=== PATIENT | female | born 1960 | race Caucasian/White ===

== ENCOUNTER 2019-11-25 13:47 | Emergency (ER) | payer MEDICARE, SELFPAY ==
--- NOTE | ~2019-11-25 | CT_ITS ---
EXAMINATION: CT abd pelvis lumbar wo con DATE: 11/25/2019 15:09 INDICATION: Left flank pain TECHNIQUE: Computed tomography (CT) of the abdomen, pelvis and lumbar spine was performed without int ravenous contrast. The dose-length product was 234.49 mGy-cm. Automated exposure control and iterativ e reconstruction technique were employed. COMPARISON: CT dated 10/29/2012 FINDINGS: Lung bases unremarkable. No significant pleural or pericardial effusion. Heart size normal. Mild atherosclerosis. There is an ectopic right pelvic kidney with probable fibrous band connecting to the left kidney. There is a punctate nonobstructing right renal stone. No ureteral stones or signi ficant hydronephrosis. The liver, spleen, pancreas, adrenal glands are unremarkable. Nonobstructive bowel gas pattern. No ly mphadenopathy. No abnormal pelvic masses or fluid collections. There is a urachal remnant of the blad estella. Uterus is likely surgically absent. Lumbar spine: There is disc narrowing at L4-5. There is mild facet degenerative change at L3-4, L4-5 and L5-S1. No acute fracture or traumatic malalignment. Mild symmetric degenerative changes of the sa croiliac joints. There are multiple levels of endplate hypertrophy. IMPRESSION: 1. Punctate nonobstructing right renal stone. 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 No ureteral stones or hydronephrosis. 2: Mild lumbar spondylosis for age. Reviewed, dictated and finalized at location A. IMPRESSION: 1. Punctate nonobstructing right renal stone. 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 No uret eral stones or hydronephrosis. 2: Mild lumbar spondylosis for age.
[2019-11-25 13:49] VITALS: BP 170/107; PULSE 106; RESP 17; TEMP 37.2; O2SAT 97
--- NOTE | 2019-11-25 14:03 | ED.ABDPAIN ---
HPI - Abdominal Pain General Chief Complaint: Back Pain/Injury Stated Complaint: back pain/kidney stone Time Seen by Provider: 11/25/19 13:58 History of Present Illness HPI narrative: Pt c/o left flank pain accompanied by unable to urinate, started today, h/o kidney stones. Denies n/v/d or fever. Denies abd pain. Related Data Home Medications Medication Instructions Recorded Confirmed bupropion HCl 150 mg 24 hr tablet, 150 mg PO QAM 11/25/19 extended release clonazepam 0.5 mg tablet 0.5 mg PO TID tablet 11/25/19 lisdexamfetamine 30 mg capsule 30 mg PO DAILY 11/25/19 Allergies Allergy/AdvReac Type Severity Reaction Status Date / Time Penicillins Allergy Unknown Scratchy Verified 11/25/19 13:48 palms Review of Systems Review of Systems: All systems reviewed & are unremarkable except as noted in HPI and below Constitutional: Constitutional: Denies body ache(s), Denies chills, Denies excessive sweating, Denies fatigue, Denies fever(s), Denies headache(s), Denies lethargy, Denies malaise, Denies weakness and Denies weight loss Eyes: Eyes: Denies blurry vision, Denies change in vision and Denies loss of vision ENT: Denies dizziness, Denies ear discharge, Denies headache(s), Denies lip swelling, Denies epistaxis, Denies nasal congestion, Denies neck pain, Denies throat swelling and Denies tongue swelling Cardiovascular: Cardiovascular: Denies chest pain, Denies chest pain at rest, Denies chest pain with activity, Denies diaphoresis, Denies rapid heart rate, Denies edema, Denies irregular heart rhythm, Denies lightheadedness, Denies palpitations, Denies dyspnea and Denies dyspnea on exertion Respiratory: Respiratory: Denies chest congestion, Denies cough, Denies hemoptysis, Denies dyspnea and Denies dyspnea on exertion Gastrointestinal: Gastrointestinal: Denies abdominal pain, Denies melena, Denies hematochezia, Denies diarrhea, Denies nausea, Denies vomiting and Denies hematemesis Musculoskeletal: Musculoskeletal: Denies abnormal gait, Denies deformity, Denies joint swelling, Denies limited range of motion, Denies neck pain and Denies numbness Neurologic: Denies Abnormal speech present, Denies abnormal gait, Denies confusion, Denies dizziness, Denies headache(s), Denies focal weakness, Denies loss of vision, Denies numbness, Denies Other visual disturbances, Denies Sensory deficit (Neuro) and Denies weakness Psychiatric: Psychiatric: Denies confusion, Denies depression, Denies auditory hallucinations, Denies homicidal ideation and Denies suicidal ideation Endocrine: Endocrine: Denies cold intolerance, Denies excessive sweating, Denies fatigue, Denies heat intolerance and Denies palpitations Hematologic/Lymphatic: Hematologic/Lymphatic: Denies easy bleeding and Denies easy bruising Allergic/Immunologic: Allergic/Immunologic: Denies lip swelling, Denies throat swelling and Denies tongue swelling PMFSH Past Medical History Medical History (Updated 11/25/19 @ 17:05 by Unruly Posey MD) Anxiety and depression COPD (chronic obstructive pulmonary disease) DDD (degenerative disc disease) History of ectopic Hypertension PTSD (post-traumatic stress disorder) Ruptured appendix Surgical History Surgical History (Updated 05/12/19 @ 12:31 by Lynda Hernandez [facility]) History of abdominoplasty History of section x 2 History of hysterectomy Hx of bilateral breast reduction surgery Family History Family History (Updated 01/15/18 @ 14:09 by DOCTOR UNKNOWN) Mother Family history of malignant neoplasm of breast in first degree relative Social History Social History (Updated 11/25/19 @ 13:04 by Cari Ellison [facility]) Smoking status: Current every day smoker Smoking end date: 03/03/17 Alcohol intake: never Gender identity (if verbalized by the patient): Female Exam Const: General: cooperative, healthy appearing, comfortable, no acute distress, well developed, alert and awake;
[2019-11-25 14:40] LABS: Basophils Absolute Auto 0.1 K/mm3 (0.0-0.1); Basophils Percent Auto 0.6 % (0.2-1.2); Eosinophils Absolute Auto 0.1 K/mm3 (0-0.3); Eosinophils Percent Auto 1.2 % (0-4.4); Hematocrit 45.3 % (37.0-47.0); Hemoglobin 15.1 g/dL (12.0-15.0); Immature Granulocyte Absolute 0.03 K/mm3 (0.00-0.031); Immature Granulocyte Percent A 0.3 % (0-0.5); Lymphocytes Absolute Auto 2.91 K/mm3 (0.9-3.2); Lymphocytes Percent Auto 24.7 % (18.3-44.2); Mean Corpuscular HGB Conc 33.3 g/dl (32-36); Mean Corpuscular Hemoglobin 29.3 pg (26-34); Monocytes Absolute Auto 0.5 K/mm3 (0.1-0.6); Monocytes Percent Auto 4.4 % (2.6-8.5); Neutrophils Absolute Auto 8.1 K/mm3 (1.3-6.7); Neutrophils Percent Auto 68.8 % (45.5-73.1); Platelet Count Result 291 k/mm3 (150-375); Red Blood Count 5.15 M/mm3 (4.2-5.4); Red Cell Distribution Width 13.3 % (11.5-14.5); White Blood Count 11.8 K/mm3 (4.5-10.0)
[2019-11-25 14:46] LABS: Add Urine Microscopic? YES; Appearance Urine Cloudy (Clear); Bilirubin Urine Negative (Negative); Blood Urine Negative (Negative); Color Urine Yellow (Yellow); Glucose Urine UA Negative (Negative); Ketones Urine Trace mg/dL (Negative); Leukocyte Esterase Ur Negative LEU/UL (Negative); Mucus Urine Rare /lpf; Nitrate Urine Negative (Negative); Protein Urine Negative (Negative); RBC Urine 0-2 /hpf (0-2); Squamous Epithelial Cell Urine Moderate /hpf (Few); Urobilinogen Urine Negative mg/dL (<2.0); WBC Urine 0-3 /hpf
[2019-11-25 14:48] LABS: Anion Gap 9 mmol/L (8-16); Blood Urea Nitrogen 11 mg/dL (7-17); Calcium 9.7 mg/dL (8.4-10.2); Carbon Dioxide 24 mmol/L (22-30); Chloride 106 mmol/L (98-107); Estimated CRCL calculation 56 ml/min; Estimated Glomerular Filt Rate > 60; Glucose 106 mg/dL (65-105); Sodium 139 mmol/L (137-145)
[2019-11-25] MEDS: KETOROLAC 30 MG/ML VIAL (*BKC) IV PUSH (14:54)
[2019-11-25] MEDS: PROMETHAZINE HCL 25 MG/ML AMPUL (14:54)
[2019-11-25 16:19] VITALS: BP 185/103; PULSE 78; RESP 18; O2SAT 96
[2019-11-25] MEDS: HYDROcodone/acetaminophen (*CRX) 5-325 MG TABLET 2 TAB PO (17:04)
== END 2019-11-25 18:01 | disposition home or self-care (01) ==
PROVIDERS: Emergency Medicine; Emergency Provider Emergency Medicine; PCP Internal Medicine
DX: S39.012A Strain of muscle, fascia and tendon of lower back, initial encounter (principal); R10.9 Unspecified abdominal pain; F41.9 Anxiety disorder, unspecified; F32.9 Major depressive disorder, single episode, unspecified; J44.9 Chronic obstructive pulmonary disease, unspecified; I10 Essential (primary) hypertension; F43.10 Post-traumatic stress disorder, unspecified; Z87.891 Personal history of nicotine dependence; M47.816 Spondylosis without myelopathy or radiculopathy, lumbar region; N20.0 Calculus of kidney; Q63.2 Ectopic kidney; Z87.442 Personal history of urinary calculi; X58.XXXA Exposure to other specified factors, initial encounter
CPT/HCPCS: 36415; 72133; 74176; 80048; 81001; 85025; 96374; 96375; 99284; A9270; J1885; J2550

== ENCOUNTER → 2021-03-29 01:18 | Outpatient (CLI) | payer MEDICARE, SELFPAY ==
[2021-03-29 14:26] LABS: Influenza A QL RT-PCR Negative (Negative); Influenza B QL RT-PCR Negative (Negative); SARS-CoV-2 RNA PCR Negative
== END ==
PROVIDERS: PCP Internal Medicine; Visit Provider Nurse Practitioner
DX: R05.9 Cough, unspecified (principal); Z20.822 Contact with and (suspected) exposure to COVID-19
CPT/HCPCS: 87502; C9803; U0003; U0005

== ENCOUNTER 2021-09-11 17:32 | Outpatient (CLI) | payer MEDICARE, SELFPAY ==
--- NOTE | ~2021-09-11 | XR_ITS ---
EXAMINATION: XR chest 2V 09/11/2021 17:54 INDICATION: Fever. Possible pneumonia. PROCEDURE: 2 view chest COMPARISON: Comparison to multiple prior studies sequentially, with oldest reviewed study dated 05/15. FINDINGS: The lungs are clear. The cardiomediastinal silhouette is within normal limits. There are no pleural effusions. There is no pneumothorax suspected. The lungs are hyperinflated which is cons istent with, but not diagnostic of chronic obstructive pulmonary disease. IMPRESSION: 1: NO ACUTE CARDIOPULMONARY DISEASE. Reviewed, dictated and finalized at location A.
== END 2021-09-11 17:33 | disposition home or self-care (01) ==
PROVIDERS: PCP Internal Medicine; Visit Provider Nurse Practitioner
DX: R50.9 Fever, unspecified (principal)
CPT/HCPCS: 71046

== ENCOUNTER 2021-10-09 15:30 | Outpatient (CLI) | payer MEDICARE, SELFPAY ==
[2021-10-09 13:24] LABS: Basophils Absolute Auto 0.1 K/mm3 (0.0-0.1); Basophils Percent Auto 0.6 % (0.2-1.2); Eosinophils Absolute Auto 0.2 K/mm3 (0-0.3); Eosinophils Percent Auto 2.3 % (0-4.4); Hematocrit 43.5 % (37.0-47.0); Immature Granulocyte Absolute 0.02 K/mm3 (0.00-0.031); Immature Granulocyte Percent A 0.3 % (0-0.5); Lymphocytes Absolute Auto 2.65 K/mm3 (0.9-3.2); Lymphocytes Percent Auto 33.5 % (18.3-44.2); Mean Corpuscular HGB Conc 32.2 g/dl (32-36); Mean Corpuscular Hemoglobin 29.2 pg (26-34); Mean Corpuscular Volume 90.6 fl (80-100); Mean Platelet Volume 10.3 fl (7.4-10.4); Monocytes Absolute Auto 0.4 K/mm3 (0.1-0.6); Monocytes Percent Auto 5.6 % (2.6-8.5); Neutrophils Absolute Auto 4.6 K/mm3 (1.3-6.7); Neutrophils Percent Auto 57.7 % (45.5-73.1); Platelet Count Result 278 k/mm3 (150-375); Red Cell Distribution Width 13.3 % (11.5-14.5); White Blood Count 7.9 K/mm3 (4.5-10.0)
[2021-10-09 13:36] LABS: Alanine Aminotransferase 15 U/L (6-35); Albumin Level 4.7 g/dL (3.5-5.1); Alkaline Phosphatase 146 U/L (38-126); Anion Gap 7 mmol/L (8-16); Aspartate Amino Transferase 22 U/L (14-36); Bilirubin,Total 0.7 mg/dL (0.2-1.3); Blood Urea Nitrogen 13 mg/dL (7-17); Calcium 9.6 mg/dL (8.4-10.2); Carbon Dioxide 34 mmol/L (22-30); Chloride 100 mmol/L (98-107); Cholesterol 240 mg/dL (0-200); Estimated Glomerular Filt Rate 56; Glucose 113 mg/dL (65-110); HDL Direct 62 mg/dL; Potassium 4.5 mmol/L (3.4-5.0); Sodium 141 mmol/L (137-145); Triglycerides 91 mg/dL (<150)
[2021-10-09 13:47] LABS: LDL Cholesterol Direct 128 mg/dL
[2021-10-09 14:05] LABS: Thyroid Stimulating Hormone 0.872 uIU/mL (0.465-4.680)
[2021-10-10 13:02] LABS: Hemoglobin A1C 5.6 % (<5.7)
== END 2021-10-09 15:31 | disposition home or self-care (01) ==
PROVIDERS: PCP Internal Medicine; Visit Provider Nurse Practitioner
DX: F32.9 Major depressive disorder, single episode, unspecified (principal); F41.9 Anxiety disorder, unspecified; Z13.220 Encounter for screening for lipoid disorders; Z13.29 Encounter for screening for other suspected endocrine disorder; R73.9 Hyperglycemia, unspecified
CPT/HCPCS: 36415; 80053; 80061; 83036; 84443; 85025

== ENCOUNTER → 2021-12-13 11:05 | Outpatient (CLI) | payer MEDICARE, SELFPAY ==
--- NOTE | ~2021-12-13 | XR_ITS ---
EXAMINATION: XR lumbar spine 2-3V DATE: 12/13/2021 11:50 INDICATION: Lumbar radiculopathy TECHNIQUE: Anteroposterior and lateral views of the lumbar spine, and cone-down lateral view of the l umbosacral junction were obtained. COMPARISON: CT, 11/25/2019 FINDINGS: Bone alignment is normal. There is no fracture. The vertebral body heights are maintained. There is mild loss of intervertebral disc space height throughout the lumbar spine. There is moderate to severe facet joint osteoarthritis in the lower lumbar spine. A moderate volume of colonic stool i s present. IMPRESSION: 1. Mild to moderate lumbar spondylosis without acute findings or significant interval change. Reviewed, dictated and finalized at location F. IMPRESSION: 1. Mild to moderate lumbar spondylosis without acute findings or significant in terval change.
== END ==
PROVIDERS: PCP Nurse Practitioner; Visit Provider Nurse Practitioner
DX: M47.26 Other spondylosis with radiculopathy, lumbar region (principal)
CPT/HCPCS: 72100

== ENCOUNTER 2022-01-11 12:31 | Outpatient (RCR) | payer MEDICARE, SELFPAY ==
--- NOTE | 2022-01-11 13:52 | PTOPEVAL1 ---
Assessment and note entered by Gill Menendez, PT Evaluation Information Assessment Status Evaluation Diagnosis lumbar radiculopathy Onset mid-October 2021 Subjective Information gradual increase in pain in back and R leg; no trauma or injury to back; have a history of back pain in past, but had resolved; had steroid and flexeril--helped a little; flexeril helped her sleeping; usually she is active- does spinning class 2 hours at time, yoga, walk 3 miles/day--but not able to do now, only about 1 mile due to back pain; Reported Pain Level Pain Score Self Report Additional Pain Score Comments pain range of 0-8/10 in back and into R LE to anterior - mid peña; throb in back, sometimes stab if move wrong; increase pain with sleeping, awaken 3-4 x/night due to pain - sleeps on side R/L with hip and knees flexed; walking is OK; decrease pain by changing position, heating pad; has had back treatment in the past with therapy and shots~ 1999, and 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 She reports a history of back pain with injections and therapy. Also has had extensive abdominal surgery with gallbladder, infection, gangrene and reconstructive surgery. She is normally active, but decreased with her exercises due to back and leg pain. And sleeping is disrupted, awakening her from sleep 3-4x/night. Oswestry self assessment functional score of 4% limitation. Her xray report states moderate to severe facet OA. With the evaluation, her posture: has rounded shoulders with slight increase in flexion of thoracic spine, flat lumbar spine, decreased wt on her R LE; she has good flexibility of her hips and tightness over thoracic spine; good LE strength and decreased abdominal strength; Skilled PT services are indicated for modalities to decrease pain and spasms; therapeutic exercises to strengthen abdominals and stretch trunk with education for HEP and posture. Plan of Care Interventions Manual Therapy,Mechanical Traction,Patient/ Caregiver Education,Therapeutic Activities, Therapeutic Exercise,Ultrasound,Other Other Interventions
--- NOTE | 2022-02-22 11:30 | PCPTNOTE ---
PHYSICAL THERAPY DISCHARGE 02-22-22 Attending Provider: Leeann Kirby NP Patient:Juana Salinas Date of :1960 Juana has not returned for any further treatments since the initial evaluation on 01/11/2022, for low back pain; therefore she will be discharged at this time. Thank you for referring Ms. Salinas to [facility].
== END 2022-02-22 14:18 | disposition home or self-care (01) ==
LOC: ANHPT 12:31
PROVIDERS: PCP Nurse Practitioner; Visit Provider Nurse Practitioner
DX: M54.16 Radiculopathy, lumbar region (principal)
CPT/HCPCS: 97110; 97161

== ENCOUNTER 2022-04-25 14:08 | Outpatient (CLI) | payer MEDICARE, SELFPAY ==
--- NOTE | ~2022-04-25 | MM_ITS ---
EXAMINATION: MM screening suresh BI w lowell HISTORY: Screening mammogram TECHNIQUE: Craniocaudal and mediolateral oblique 3-D tomosynthesis images were obtained and synthetic 2-D images were generated. CAD analysis was submitted and interpreted. COMPARISON: 07/11/2017 bilateral diagnostic mammography and complete bilateral breast ultrasound exami nation BREAST PARENCHYMAL COMPOSITION: There are scattered areas of fibroglandular density. FINDINGS: Bilateral mammographic asymmetries are likely secondary to history of prior bilateral breas t reduction surgery in 2005. Occasional bilateral benign calcifications. There is no evidence of susp icious mass, calcification, or architectural distortion to suggest malignancy in either breast. There has been no suspicious interval change. IMPRESSION: 1. No mammographic evidence of malignancy. 2. Recommend routine screening mammography in one year. BI-RADS Category 2: Benign finding(s). Reviewed, dictated and finalized at location A. 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
--- NOTE | ~2022-04-25 | DEXA_ITS ---
Bone Density Report Name: HIRAM REYES Age: 62 Sex: Female Ethnicity: White Date of : 1960 Indication: postmenopausal; screening for osteoporosis; hysterectomy; Referring Provider: SONU DICKINSON Study: Bone densitometry was performed. Exam Date: April 25, 2022 Accession number: [id number] Bone Density: Region BMD T-score Z-score Classification AP Spine(L1-L4) 1.088 0.4 2.1 Normal Femoral Neck (Left) 0.666 -1.7 -0.2 Osteopenia Total Hip (Left) 0.837 -0.9 0.3 Normal Femoral Neck (Right) 0.686 -1.5 0.0 Osteopenia Total Hip (Right) 0.840 -0.8 0.3 Normal Total Hip Mean 0.839 -0.9 0.3 Normal World Health Organization criteria for BMD impression classify patients as: Normal (T-score at or above -1.0), Osteopenia (T-score between -1.0 and -2.5), or Osteoporosis (T-score at or below -2.5). Clinical Information Provided by Patient: Has used the following medications: Vitamin D, Calcium Has the following medical conditions: Hysterectomy Patient maximum height was 67 Menopause Age: 38 Does not regularly consume dairy products Drinks caffeinated beverages Onset of menses at age 11 Number of children 2 Impression: The patient has low bone mass, based on the Left Femoral Neck T-score. Discussion: BONE DENSITY IS LOW AT ONE OR MORE SKELETAL SITES. This patient's lowest T-score is low at one or more skeletal sites. It meets the World Health Organization's (WHO) criteria for ?low bone mass? (T-score between -1.0 and -2.5). The patient's 10-year risk of fracture as calculated by FRAX is less than the threshold where pharmacological therapy is recommended by the National Osteoporosis Foundation (NOF). However, all treatment decisions require clinical judgment and consideration of individual patient factors, including patient preferences, comorbidities, previous drug use, risk factors not captured in the FRAX model (e.g., frailty, falls, vitamin D deficiency, increased bone turnover, interval significant decline in bone density) and possible under or overestimation of fracture risk by FRAX. The patient should follow a healthful lifestyle (good nutrition with adequate calcium and vitamin D, and appropriate weight-bearing exercise). Follow-Up: Consider repeating this study in 2 to 3 years to reassess this patient's status, or sooner if there is some new clinical indication. Reported by: ARIELLE on 04/25/2022 2:36:00 PM. Reviewed, dictated and finalized at location AMichelle MENDOZA
== END 2022-04-25 14:09 | disposition home or self-care (01) ==
PROVIDERS: PCP Nurse Practitioner; Visit Provider Nurse Practitioner
DX: Z12.31 Encounter for screening mammogram for malignant neoplasm of breast (principal); Z78.0 Asymptomatic menopausal state; M85.852 Other specified disorders of bone density and structure, left thigh; M85.851 Other specified disorders of bone density and structure, right thigh
CPT/HCPCS: 77063; 77067; 77080

== ENCOUNTER → 2022-08-16 12:21 | Outpatient (CLI) | payer MEDICARE, SELFPAY ==
--- NOTE | ~2022-08-16 | XR_ITS ---
EXAM: XR hand RT min 3V DATE: 08/16/2022 12:32 HISTORY: fall 1 month ago pain 5th metacarpal . COMPARISON: None available. FINDINGS: Normal mineralization. Comminuted, mildly displaced fracture of the proximal aspect of the right fifth metacarpal, with evidence of healing change. No lytic or blastic lesion. Mild polyarticu lar osteoarthritis of the hand and wrist. No erosion or periosteal change. Soft tissues within normal limits. IMPRESSION: Comminuted, mildly displaced fracture of the base of the right fifth metacarpal, with jack dence of early healing change. Reviewed, dictated and finalized at location K. IMPRESSION: Comminuted, mildly displaced fracture of the base of the right fift h metacarpal, with evidence of early healing change.
== END ==
PROVIDERS: PCP Nurse Practitioner; Visit Provider Nurse Practitioner
DX: S62.316A Displaced fracture of base of fifth metacarpal bone, right hand, initial encounter for closed fracture (principal); W19.XXXA Unspecified fall, initial encounter
CPT/HCPCS: 73130

== ENCOUNTER 2022-10-28 13:21 | Outpatient (CLI) | payer MEDICARE, SELFPAY ==
[2022-10-28 18:55] LABS: Basophils Absolute Auto 0.1 K/mm3 (0.0-0.1); Basophils Percent Auto 0.7 % (0.2-1.2); Eosinophils Absolute Auto 0.3 K/mm3 (0-0.3); Eosinophils Percent Auto 3.8 % (0-4.4); Hematocrit 44.5 % (37.0-47.0); Hemoglobin 14.4 g/dL (12.0-15.0); Immature Granulocyte Absolute 0.01 K/mm3 (0.00-0.031); Immature Granulocyte Percent A 0.1 % (0-0.5); Lymphocytes Absolute Auto 3.27 K/mm3 (0.9-3.2); Lymphocytes Percent Auto 37.3 % (18.3-44.2); Mean Corpuscular HGB Conc 32.4 g/dl (32-36); Mean Corpuscular Hemoglobin 29.5 pg (26-34); Mean Corpuscular Volume 91.2 fl (80-100); Mean Platelet Volume 11.8 fl (7.4-10.4); Monocytes Absolute Auto 0.5 K/mm3 (0.1-0.6); Monocytes Percent Auto 5.1 % (2.6-8.5); Neutrophils Absolute Auto 4.6 K/mm3 (1.3-6.7); Platelet Count Result 313 k/mm3 (150-375); Red Blood Count 4.88 M/mm3 (4.2-5.4); Red Cell Distribution Width 13.2 % (11.5-14.5); White Blood Count 8.8 K/mm3 (4.5-10.0)
[2022-10-28 19:17] LABS: Alanine Aminotransferase 17 U/L (6-35); Albumin Level 4.7 g/dL (3.5-5.1); Alkaline Phosphatase 131 U/L (38-126); Anion Gap 5 mmol/L (8-16); Aspartate Amino Transferase 34 U/L (14-36); Bilirubin,Total 0.9 mg/dL (0.2-1.3); Blood Urea Nitrogen 13 mg/dL (7-17); Calcium 9.5 mg/dL (8.4-10.2); Carbon Dioxide 34 mmol/L (22-30); Chloride 103 mmol/L (98-107); Cholesterol 232 mg/dL (0-200); Estimated Glomerular Filt Rate > 60; Glucose 89 mg/dL (65-110); HDL Direct 60 mg/dL; Potassium 4.2 mmol/L (3.4-5.0); Sodium 142 mmol/L (137-145); Triglycerides 150 mg/dL (<150)
[2022-10-28 19:28] LABS: LDL Cholesterol Direct 119 mg/dL
[2022-10-28 19:53] LABS: Vitamin D 25 Hydroxy 37.1 ng/mL
== END 2022-10-28 13:22 | disposition home or self-care (01) ==
LOC: ANHGOSHLAB 13:22
PROVIDERS: PCP Nurse Practitioner; Visit Provider Nurse Practitioner
DX: R94.4 Abnormal results of kidney function studies (principal); E55.9 Vitamin D deficiency, unspecified; E78.5 Hyperlipidemia, unspecified; Z13.29 Encounter for screening for other suspected endocrine disorder
CPT/HCPCS: 36415; 80053; 80061; 82306; 85025

== ENCOUNTER 2022-12-25 12:31 | Outpatient (CLI) | payer MEDICARE, SELFPAY ==
[2022-12-25 20:36] LABS: Free T4 Free Thyroxine 1.11 ng/mL (0.78-2.19)
== END 2022-12-25 12:32 | disposition home or self-care (01) ==
LOC: ANHGOSHLAB 12:33
PROVIDERS: PCP Internal Medicine; Visit Provider Nurse Practitioner
DX: F41.9 Anxiety disorder, unspecified (principal); R94.4 Abnormal results of kidney function studies
CPT/HCPCS: 36415; 84439; 84443

== ENCOUNTER 2023-01-08 01:34 | Day surgery (SDC) | payer MEDICARE, SELFPAY ==
[2022-12-27 15:38] VITALS: BMI 21.7
--- NOTE | 2023-01-06 09:46 | SUR.PREOP ---
Patient called regarding upcoming procedure. Reviewed preop instructions, appointment times, and procedure prep.
--- NOTE | 2023-01-06 09:52 | SUR.PREOP ---
Patient called regarding upcoming procedure. Reviewed preop instructions, appointment times, and procedure prep.
[2023-01-08 09:00] VITALS: BP 143/89; PULSE 101; RESP 18; TEMP 36.3; O2SAT 97
[2023-01-08] MEDS: LACTATED RINGERS 1,000 ML 150 ML IV CONT (09:26)
--- NOTE | 2023-01-08 09:52 | WPDANESEPPF ---
Anes - Initial Pre Proc Eval Procedure: Operation Date: 01/08/23 10:30 Proposed Procedures p Screening Colonoscopy - Zachary Todd MD Date/Time: 01/08/23 09:52 Surgeon: Zachary Todd MD Pre Op Diagnosis: neoplasm screening Patient Data Age: 62 Gender: F Height: 1.7 m Weight: 63 kg Last Vital Signs Temp 97.4 F L 01/08/23 09:00 Pulse 101 H 01/08/23 09:00 Resp 18 01/08/23 09:00 BP 143/89 H 01/08/23 09:00 Pulse Ox 97 01/08/23 09:00 O2 Del Method Room Air 01/08/23 09:00 Allergies Allergy/AdvReac Type Severity Reaction Status Date / Time Penicillins Allergy Unknown Scratchy Verified 01/08/23 08:59 palms Home Medications Medication Instructions Recorded Confirmed Type clonazepam 0.5 mg tablet 0.5 mg PO TID 11/25/19 01/08/23 History bupropion HCl 150 mg 24 hr tablet, 150 mg PO BID 10/15/21 01/08/23 History extended release (Wellbutrin XL) calcium carbonate 600 mg calcium 600 mg PO DAILY 10/31/22 01/08/23 History (1,500 mg) tablet (Calcium) cholecalciferol (vitamin D3) 25 25 mcg PO DAILY 10/31/22 01/08/23 History mcg (1,000 unit) capsule clonidine HCl 0.2 mg tablet 0.2 mg PO BID #180 tabs 10/31/22 01/08/23 Rx multivitamin (Multiple Vitamins 1 tablet PO DAILY 10/31/22 01/08/23 History tablet) Patient hx anesthesia problems: none Family hx anesthesia problems: none Results Review: All pre-operative results and documents have been reviewed as part of the pre-operative evaluation. [facility] Past Medical History Medical History Anxiety and depression COPD (chronic obstructive pulmonary disease) DDD (degenerative disc disease) History of ectopic Hypertension PTSD (post-traumatic stress disorder) Ruptured appendix Surgical History Surgical History History of abdominoplasty History of section x 2 History of hysterectomy Hx of bilateral breast reduction surgery Family History Family History Mother Family history of malignant neoplasm of breast in first degree relative Father Mesothelioma Sibling DVT (deep venous thrombosis) Social History Social History (Updated 12/25/22 @ 11:08 by Tracey Sumner CMA) Years smoked: 20 Smoking status: Former smoker Tobacco type: cigarettes Smoking end date: 03/03/19 Alcohol intake: never Substance use: current Substance use type: marijuana Other substance usage details: Occasional Lack of Transportation: No Lack of Food: Never True Current Housing: I Have Housing Concerned About Future Housing: No Difficulty Paying Gas/Electric Bills: No Difficulty Paying for Meds: YES Currently Unemployed: No Education: Trade/Vocational Certificate Difficulty w/ Childcare or Family Care: YES Gender identity (if verbalized by the patient): Female Spiritual care concerns: No Anes - Eval Final PreProcedure Day of Procedure 01/08/23 09:52 Patient weight: normal Heart: regular rate and rhythm Lungs: clear to auscultation Airway: Mallampati scale class II Neurological: alert and oriented Last oral intake: >/= 8 hours ASA classification: II Emergent: no Anesthetic plan: proceed Anesthesia type and monitoring: general GIVS and standard monitoring Results Review: All pre-operative results and documents have been reviewed as part of the pre-operative evaluation. Informed Consent: The patient's anesthetic plan and its attendant risks and benefits were discussed with the patient/family/POA. Questions were solicited and answers provided to the satisfaction of the patient/family/POA.
--- NOTE | 2023-01-08 10:05 | PM.HPGS ---
History of Present Illness History of Present Illness Consent: Risks, benefits, and alternatives have been discussed and questions answered. Patient agrees to proceed with procedure. Chief complaint: neoplasm screening Narrative: Juana Salinas is a 62 year old female here for screening colonoscopy, last one 9-10 years ago, also ibs-c Review of Systems Constitutional: Constitutional: Denies headache(s) and Denies weakness Eyes: Eyes: Denies blurry vision ENT: Reports Normal hearing present, Denies headache(s) and Denies neck pain Cardiovascular: Cardiovascular: Denies chest pain and Denies dyspnea Respiratory: Respiratory: Denies dyspnea Gastrointestinal: Gastrointestinal: Reports no additional gastrointestinal complaints Genitourinary: Genitourinary: Denies dysuria Musculoskeletal: Musculoskeletal: Denies neck pain Integumentary/Breasts: Skin/Breast: Denies dry skin Neurologic: Reports Normal hearing present, Denies headache(s) and Denies weakness Psychiatric: Psychiatric: Denies anxiety Endocrine: Endocrine: Denies change in body appearance Hematologic/Lymphatic: Hematologic/Lymphatic: Denies easy bleeding Allergic/Immunologic: Allergic/Immunologic: Denies urticaria [facility] Past Medical History Medical History Anxiety and depression COPD (chronic obstructive pulmonary disease) DDD (degenerative disc disease) History of ectopic Hypertension PTSD (post-traumatic stress disorder) Ruptured appendix Surgical History Surgical History History of abdominoplasty History of section x 2 History of hysterectomy Hx of bilateral breast reduction surgery Family History Family History Mother Family history of malignant neoplasm of breast in first degree relative Father Mesothelioma Sibling DVT (deep venous thrombosis) Social History Social History (Updated 12/25/22 @ 11:08 by Tracey Sumner [facility]) Years smoked: 20 Smoking status: Former smoker Tobacco type: cigarettes Smoking end date: 03/03/19 Alcohol intake: never Substance use: current Substance use type: marijuana Other substance usage details: Occasional Lack of Transportation: No Lack of Food: Never True Current Housing: I Have Housing Concerned About Future Housing: No Difficulty Paying Gas/Electric Bills: No Difficulty Paying for Meds: YES Currently Unemployed: No Education: Trade/Vocational Certificate Difficulty w/ Childcare or Family Care: YES Gender identity (if verbalized by the patient): Female Spiritual care concerns: No Meds Home Medications and Allergies Home Medications Medication Instructions Recorded Confirmed Type clonazepam 0.5 mg tablet 0.5 mg PO TID 11/25/19 01/08/23 History bupropion HCl 150 mg 24 hr tablet, 150 mg PO BID 10/15/21 01/08/23 History extended release (Wellbutrin XL) calcium carbonate 600 mg calcium 600 mg PO DAILY 10/31/22 01/08/23 History (1,500 mg) tablet (Calcium) cholecalciferol (vitamin D3) 25 25 mcg PO DAILY 10/31/22 01/08/23 History mcg (1,000 unit) capsule clonidine HCl 0.2 mg tablet 0.2 mg PO BID #180 tabs 10/31/22 01/08/23 Rx multivitamin (Multiple Vitamins 1 tablet PO DAILY 10/31/22 01/08/23 History tablet) Allergies Allergy/AdvReac Type Severity Reaction Status Date / Time Penicillins Allergy Unknown Scratchy Verified 01/08/23 08:59 palms Vital Signs Vital Signs - 24 hr 01/08/23 09:00 Temperature 97.4 F L Pulse Rate 101 H Respiratory Rate 18 Blood Pressure 143/89 H Pulse Oximetry 97 Oxygen Delivery Room Air Exam Const: General: comfortable and no acute distress HENMT: Face/Nose/Sinus: Normal nares present Eyes: General: appearance normal, both eyes and all related structures Neck: Neck: no JVD Resp: Auscultation:
[2023-01-08 10:30] VITALS: BP 89/58; PULSE 77; RESP 22; O2SAT 96
[2023-01-08 10:40] VITALS: BP 90/60; PULSE 75; RESP 22; O2SAT 96
[2023-01-08 10:50] VITALS: BP 110/75; PULSE 80; RESP 22; O2SAT 96
== END 2023-01-08 11:00 | disposition home or self-care (01) ==
PROVIDERS: PCP Internal Medicine; Visit Provider Internal Medicine Gastroenterology
PROC: 0DJD8ZZ Inspection of Lower Intestinal Tract, Via Natural or Artificial Opening Endoscopic (ICD-10-PCS; CPT 45378; principal; 2023-01-08 10:30)
DX: Z12.11 Encounter for screening for malignant neoplasm of colon (principal); D12.3 Benign neoplasm of transverse colon; K63.5 Polyp of colon; K58.1 Irritable bowel syndrome with constipation; J44.9 Chronic obstructive pulmonary disease, unspecified; I10 Essential (primary) hypertension; F41.8 Other specified anxiety disorders; F43.10 Post-traumatic stress disorder, unspecified; Z87.891 Personal history of nicotine dependence; F12.90 Cannabis use, unspecified, uncomplicated
CPT/HCPCS: 45385; 88305; J2250; J2704; J7120

== ENCOUNTER 2023-03-26 14:35 | Outpatient (CLI) | payer MEDICARE, SELFPAY ==
[2023-03-26 15:22] LABS: Hemoglobin 15.4 g/dL (12.0-15.0); Mean Corpuscular HGB Conc 32.1 g/dl (32-36); Mean Corpuscular Hemoglobin 28.7 pg (26-34); Mean Corpuscular Volume 89.6 fl (80-100); Mean Platelet Volume 10.9 fl (7.4-10.4); Platelet Count Result 315 k/mm3 (150-375); Red Blood Count 5.36 M/mm3 (4.2-5.4); Red Cell Distribution Width 13.6 % (11.5-14.5); White Blood Count 13.1 K/mm3 (4.5-10.0)
[2023-03-26 16:12] LABS: Alanine Aminotransferase 19 U/L (6-35); Albumin Level 4.7 g/dL (3.5-5.1); Alkaline Phosphatase 142 U/L (38-126); Anion Gap 10 mmol/L (8-16); Aspartate Amino Transferase 27 U/L (14-36); Bilirubin,Total 1.2 mg/dL (0.2-1.3); Blood Urea Nitrogen 19 mg/dL (7-17); CRP < 0.5 mg/dL (<1.0); Calcium 9.9 mg/dL (8.4-10.2); Carbon Dioxide 27 mmol/L (22-30); Chloride 103 mmol/L (98-107); Erythrocyte Sedimentation Rate 1 mm/hr (0-20); Estimated Glomerular Filt Rate > 60; Glucose 118 mg/dL (65-110); Lipase 87 U/L (23-300); Potassium 4.1 mmol/L (3.4-5.0); Sodium 140 mmol/L (137-145)
[2023-03-26 16:25] LABS: Thyroid Stimulating Hormone Reflex 0.968 uIU/mL (0.465-4.68)
[2023-03-28 21:36] LABS: Immunoglobulin A 382 mg/dL (70-320); TTG IGA AB <1.0 U/mL (<15.0)
== END 2023-03-26 14:36 | disposition home or self-care (01) ==
LOC: ANHLAB 14:38
PROVIDERS: PCP Internal Medicine; Visit Provider Nurse Practitioner
DX: R50.9 Fever, unspecified (principal); Z86.010 Personal history of colon polyps; R14.2 Eructation; R10.9 Unspecified abdominal pain; K21.9 Gastro-esophageal reflux disease without esophagitis; K58.2 Mixed irritable bowel syndrome
CPT/HCPCS: 36415; 80053; 82784; 83690; 84443; 85027; 85652; 86140; 86364

== ENCOUNTER 2023-04-08 07:16 | Outpatient (CLI) | payer MEDICARE, SELFPAY ==
--- NOTE | ~2023-04-08 | CT_ITS ---
EXAMINATION: CT abdomen pelvis w con INDICATION: Abdominal pain TECHNIQUE: Computed tomographic images of the abdomen and pelvis were obtained after the administrati on of 100 cc of Omnipaque 350 intravenous contrast. The dose-length product (DLP) was 259.80 mGy-cm. Automated exposure control and iterative reconstruction technique were employed. COMPARISON: 11/25/2019 FINDINGS: Minimal dependent atelectasis is present in the lung bases. The heart size is normal. The l iver, spleen, pancreas, gallbladder, and adrenal glands are normal. 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 There is calcified atherosclerosis of the aorta and many of the other arteries. No pathologically enlarged abdominal or pelvic lymph nodes are identified. No free intraperitoneal gas or evidence of bowel obstruction. There is severe lumbar spondylosis. IMPRESSION: 1. No CT correlate for the patient's symptoms. Reviewed, dictated and finalized at location L. 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
== END 2023-04-08 07:17 | disposition home or self-care (01) ==
PROVIDERS: PCP Internal Medicine; Visit Provider Nurse Practitioner
DX: R10.813 Right lower quadrant abdominal tenderness (principal)
CPT/HCPCS: 74177; Q9967

== ENCOUNTER 2023-04-10 14:55 | Outpatient (CLI) | payer MEDICARE, SELFPAY ==
[2023-04-10 19:27] LABS: Appearance Urine Clear (Clear); Bilirubin Urine Negative (Negative); Blood Urine Negative (Negative); Color Urine Yellow (Yellow); Glucose Urine UA Negative (Negative); Ketones Urine Negative (Negative); Leukocyte Esterase Ur Negative LEU/UL (Negative); Nitrate Urine Negative (Negative); Protein Urine Negative (Negative); Specific Grav Ur 1.015 (1.001-1.035); Urobilinogen Urine 0.2 mg/dL (<2.0)
[2023-04-10 19:36] LABS: Basophils Absolute Auto 0.1 K/mm3 (0.0-0.1); Basophils Percent Auto 0.8 % (0.2-1.2); Eosinophils Absolute Auto 0.1 K/mm3 (0-0.3); Eosinophils Percent Auto 0.9 % (0-4.4); Hematocrit 45.6 % (37.0-47.0); Hemoglobin 14.6 g/dL (12.0-15.0); Immature Granulocyte Absolute 0.03 K/mm3 (0.00-0.031); Immature Granulocyte Percent A 0.3 % (0-0.5); Lymphocytes Absolute Auto 3.12 K/mm3 (0.9-3.2); Lymphocytes Percent Auto 26.8 % (18.3-44.2); Mean Corpuscular Hemoglobin 28.7 pg (26-34); Mean Corpuscular Volume 89.8 fl (80-100); Mean Platelet Volume 11.3 fl (7.4-10.4); Monocytes Absolute Auto 0.5 K/mm3 (0.1-0.6); Monocytes Percent Auto 3.9 % (2.6-8.5); Neutrophils Absolute Auto 7.9 K/mm3 (1.3-6.7); Neutrophils Percent Auto 67.3 % (45.5-73.1); Platelet Count Result 324 k/mm3 (150-375); Red Blood Count 5.08 M/mm3 (4.2-5.4); Red Cell Distribution Width 13.7 % (11.5-14.5); White Blood Count 11.7 K/mm3 (4.5-10.0)
[2023-04-10 19:46] LABS: Add Urine Microscopic? NO
== END 2023-04-10 14:56 | disposition home or self-care (01) ==
LOC: ANHGOSHLAB 14:57
PROVIDERS: PCP Internal Medicine; Visit Provider Nurse Practitioner
DX: D72.829 Elevated white blood cell count, unspecified (principal); R94.4 Abnormal results of kidney function studies
CPT/HCPCS: 36415; 81003; 85025

== ENCOUNTER 2023-04-26 10:10 | Emergency (ER) | payer MEDICARE, SELFPAY ==
[2023-04-26] VITALS (18 sets, daily range): BP systolic 102–149; BP diastolic 76–94; PULSE 82–136; RESP 16–34; TEMP 37.1; O2SAT 91–98
--- NOTE | ~2023-04-26 | XR_ITS ---
EXAMINATION: XR chest 1V portable 04/26/2023 12:55 INDICATION: Chest pain PROCEDURE: AP portable chest COMPARISON: Comparison to multiple prior studies sequentially, with oldest reviewed study dated 07/31. FINDINGS: The lungs are clear. The cardiomediastinal silhouette is within normal limits. There are no pleural effusions. There is no pneumothorax suspected. IMPRESSION: 1: NO ACUTE CARDIOPULMONARY DISEASE. Reviewed, dictated and finalized at location A. UTER T[employer]ETTER KEYLINER
--- NOTE | 2023-04-26 11:19 | PC.NURSE ---
Patient states she used to take medication for her anxiety but has been trying to wean off the last few days.
--- NOTE | 2023-04-26 12:45 | ECG_ITS ---
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
--- NOTE | 2023-04-26 13:00 | ED.GENADULT ---
HPI - General Adult General Chief complaint: Anxiety Stated complaint: anxiety Time Seen by Provider: 04/26/23 11:45 History of Present Illness HPI narrative: 63-year-old female presenting emergency department for evaluation of increased anxiety. Patient states he does have a longstanding history of anxiety. Patient also states he has had some issues with abdominal pain for which he has been worked up for since December. Patient had colonoscopy by GI which showed polyps with no acute finding. Patient does take clonazepam for anxiety. Patient presented to the emergency department due to concern acute panic attack. Related Data Home Medications Medication Instructions Recorded Confirmed clonazepam 0.5 mg tablet 0.5 mg PO TID 11/25/19 04/10/23 bupropion HCl 150 mg 24 hr tablet, 150 mg PO BID 10/15/21 04/10/23 extended release (Wellbutrin XL) calcium carbonate 600 mg calcium 600 mg PO DAILY 10/31/22 04/10/23 (1,500 mg) tablet (Calcium) cholecalciferol (vitamin D3) 25 25 mcg PO DAILY 10/31/22 04/10/23 mcg (1,000 unit) capsule multivitamin (Multiple Vitamins 1 tablet PO DAILY 10/31/22 04/10/23 tablet) Allergies Allergy/AdvReac Type Severity Reaction Status Date / Time Penicillins Allergy Unknown Scratchy Verified 04/26/23 10:46 palms Review of Systems Review of Systems: All systems reviewed & are unremarkable except as noted in HPI and below PMFSH Past Medical History Medical History Abdominal pain Anxiety and depression Belching COPD (chronic obstructive pulmonary disease) DDD (degenerative disc disease) GERD (gastroesophageal reflux disease) History of ectopic Hx of adenomatous colonic polyps Hypertension Irritable bowel syndrome with mixed bowel habits PTSD (post-traumatic stress disorder) RLQ abdominal tenderness Ruptured appendix Surgical History Surgical History History of abdominoplasty History of section x 2 History of hysterectomy Hx of bilateral breast reduction surgery Family History Family History Mother Family history of malignant neoplasm of breast in first degree relative Father Mesothelioma Sibling DVT (deep venous thrombosis) Social History Social History Years smoked: 20 Smoking status: Former smoker Tobacco type: cigarettes Smoking end date: 03/03/19 Alcohol intake: never Substance use: current Substance use type: marijuana Other substance usage details: Occasional Lack of Transportation: No Lack of Food: Never True Current Housing: I Have Housing Concerned About Future Housing: No Difficulty Paying Gas/Electric Bills: No Difficulty Paying for Meds: No Currently Unemployed: No Education: Trade/Vocational Certificate Difficulty w/ Childcare or Family Care: No Gender identity (if verbalized by the patient): Female Spiritual care concerns: No Exam Narrative: APPEARANCE: Well appearing, no pain, no distress, well-nourished. HEAD: normocephalic, atraumatic. EYES: PERRLA/EOMI, conjunctivae clear. NOSE: Normal no drainage EARS:TMS clear with good light reflex. THROAT: Pharynx clear, no exudate. NECK: Supple. No adenopathy, no masses. RESPIRATORY: Airway patent, respirations nonlabored. Clear to auscultation bilaterally, no rales, rhonchi, wheezing. CARDIOVASCULAR: Regular rate and rhythm without murmurs rubs or gallops. ABDOMINAL: Soft, nontender, nondistended, normal bowel sounds MUSCULOSKELETAL: Moves all extremities. Strength/ROM intact, No edema, No calf tenderness. NEURO: Alert. Cranial nerves II through XII intact. Good gait. Good coordination SKIN: Warm, dry. Normal Color PSYCHIATRIC: Anxious affect Course Course Emergency Course: Patient did feel improved with treatme
[2023-04-26] MEDS: LORazepam INJ (*CRX) 2 MG/ML VIAL 1 MG IV PUSH (13:04)
[2023-04-26 13:15] LABS: Basophils Absolute Auto 0.1 K/mm3 (0.0-0.1); Basophils Percent Auto 0.5 % (0.2-1.2); Eosinophils Absolute Auto 0.1 K/mm3 (0-0.3); Eosinophils Percent Auto 0.8 % (0-4.4); Hematocrit 46.4 % (37.0-47.0); Hemoglobin 15.3 g/dL (12.0-15.0); Immature Granulocyte Absolute 0.02 K/mm3 (0.00-0.031); Immature Granulocyte Percent A 0.2 % (0-0.5); Lymphocytes Absolute Auto 2.97 K/mm3 (0.9-3.2); Lymphocytes Percent Auto 30.3 % (18.3-44.2); Mean Corpuscular Hemoglobin 28.9 pg (26-34); Mean Corpuscular Volume 87.5 fl (80-100); Mean Platelet Volume 10.4 fl (7.4-10.4); Monocytes Absolute Auto 0.5 K/mm3 (0.1-0.6); Neutrophils Absolute Auto 6.2 K/mm3 (1.3-6.7); Neutrophils Percent Auto 63.2 % (45.5-73.1); Platelet Count Result 300 k/mm3 (150-375); Red Cell Distribution Width 13.6 % (11.5-14.5); White Blood Count 9.8 K/mm3 (4.5-10.0)
[2023-04-26 13:34] LABS: Alanine Aminotransferase 15 U/L (6-35); Albumin Level 4.7 g/dL (3.5-5.1); Alkaline Phosphatase 125 U/L (38-126); Anion Gap 7 mmol/L (8-16); Aspartate Amino Transferase 26 U/L (14-36); Bilirubin,Total 1.1 mg/dL (0.2-1.3); Blood Urea Nitrogen 15 mg/dL (7-17); Calcium 9.9 mg/dL (8.4-10.2); Carbon Dioxide 27 mmol/L (22-30); Chloride 105 mmol/L (98-107); Estimated CRCL calculation 59 ml/min; Estimated Glomerular Filt Rate > 60; Glucose 115 mg/dL (65-110); Potassium 4.5 mmol/L (3.4-5.0); Sodium 139 mmol/L (137-145)
[2023-04-26 13:38] LABS: Troponin I < 0.012 ng/mL (0.000-0.034)
[2023-04-26 13:48] LABS: Partial Thromboplastin Time 27.2 SECONDS (22.3-36.8); Prothrombin Time 13.5 Seconds (11.1-14.7)
[2023-04-26 16:44] LABS: Appearance Urine Cloudy (Clear); Bacteria Urine None Seen /hpf; Bilirubin Urine Negative (Negative); Blood Urine Negative (Negative); Color Urine Yellow (Yellow); Glucose Urine UA Negative (Negative); Ketones Urine 1+ mg/dL (Negative); Leukocyte Esterase Ur Negative LEU/UL (Negative); Nitrate Urine Negative (Negative); Non Pathogenic Casts 0-2; Protein Urine Negative (Negative); RBC Urine 0-2 /hpf (0-2); Specific Grav Ur 1.021 (1.001-1.035); Squamous Epithelial Cell Urine Few /hpf (Few); Urobilinogen Urine 0.2 mg/dL (<2.0); WBC Urine 0-5 /hpf
[2023-04-26 16:53] LABS: Add Urine Microscopic? YES
[2023-04-26 16:56] LABS: Troponin I < 0.012 ng/mL (0.000-0.034)
== END 2023-04-26 17:40 | disposition home or self-care (01) ==
PROVIDERS: Emergency Provider Emergency Medicine; PCP Internal Medicine
DX: F41.9 Anxiety disorder, unspecified (principal); R07.89 Other chest pain; J44.9 Chronic obstructive pulmonary disease, unspecified; I10 Essential (primary) hypertension; K58.2 Mixed irritable bowel syndrome; K21.9 Gastro-esophageal reflux disease without esophagitis; F43.10 Post-traumatic stress disorder, unspecified; F32.A Depression, unspecified; Z86.010 Personal history of colon polyps; Z87.891 Personal history of nicotine dependence; Z90.710 Acquired absence of both cervix and uterus
CPT/HCPCS: 36415; 71045; 80053; 81001; 84484; 85025; 85610; 85730; 93005; 96374; 99284; J2060

== ENCOUNTER 2023-05-17 07:38 | Observation (INO) | payer MEDICARE, SELFPAY ==
[2023-05-17] VITALS (7 sets, daily range): BP systolic 137–185; BP diastolic 75–110; PULSE 108–127; RESP 18–24; TEMP 36.8–37.7; O2SAT 90–97; BMI 21.4
--- NOTE | ~2023-05-17 | CT_ITS ---
EXAMINATION: CT abdomen pelvis w con DATE: 05/17/2023 10:14 INDICATION: Epigastric pain TECHNIQUE: Computed tomography (CT) of the abdomen and pelvis was performed with 100 mL Omnipaque-350 intravenous contrast. Automated exposure control and iterative reconstruction technique were employe d. The dose-length product was 207.82 mGy-cm. COMPARISON: 04/08/2023 FINDINGS: Lung bases are clear. Heart size is normal. No pericardial or pleural effusion. Liver, gallbladder, s pleen, pancreas and bilateral adrenal glands are normal. Cross fused renal ectopia with normal positi on of the left kidney but which is oriented with the hilum directed anteriorly with small parenchymal bridge to the right renal moiety which is horizontally oriented at the midline of the lower abdomen and . There are subcentimeter renal cysts in both the left and right renal moieties. Bladder is mark l. There are few sigmoid diverticula without adjacent inflammatory stranding to suggest diverticuliti s. Small bowel is normal. The appendix is not visualized. No pericecal inflammatory change to suggest acute appendicitis. The uterus and bilateral ovaries are not identified and have likely been surgica lly resected. There is a surgical clip along the course of the left gonadal vein. Additional surgical clip in the right hemipelvis. No free intraperitoneal gas or fluid. No pathologically enlarged abdom inal or pelvic lymphadenopathy. Moderate lumbar spondylosis. IMPRESSION: 1. No acute intra-abdominal/pelvic process. 2. Crossed fused renal ectopia. Reviewed, dictated and finalized at location A.
[2023-05-17 08:28] LABS: Basophils Absolute Auto 0.1 K/mm3 (0.0-0.1); Basophils Percent Auto 0.4 % (0.2-1.2); Eosinophils Percent Auto 0.1 % (0-4.4); Hematocrit 44.9 % (37.0-47.0); Hemoglobin 14.8 g/dL (12.0-15.0); Immature Granulocyte Absolute 0.12 K/mm3 (0.00-0.031); Immature Granulocyte Percent A 0.6 % (0-0.5); Lymphocytes Absolute Auto 2.77 K/mm3 (0.9-3.2); Lymphocytes Percent Auto 13.5 % (18.3-44.2); Mean Corpuscular Hemoglobin 29.1 pg (26-34); Mean Corpuscular Volume 88.4 fl (80-100); Mean Platelet Volume 10.8 fl (7.4-10.4); Monocytes Absolute Auto 0.5 K/mm3 (0.1-0.6); Monocytes Percent Auto 2.6 % (2.6-8.5); Neutrophils Absolute Auto 16.9 K/mm3 (1.3-6.7); Neutrophils Percent Auto 82.8 % (45.5-73.1); Platelet Count Result 352 k/mm3 (150-375); Red Blood Count 5.08 M/mm3 (4.2-5.4); Red Cell Distribution Width 13.6 % (11.5-14.5); White Blood Count 20.5 K/mm3 (4.5-10.0)
[2023-05-17] MEDS: SODIUM CHLORIDE 0.9% IV 1,000 ML 999 ML IV CONT ×2 (09:15)
[2023-05-17] MEDS: ONDANSETRON INJ 4 MG/2 ML VIAL IV PUSH ×2 (09:15→17:48)
[2023-05-17] MEDS: MORPHINE SULFATE (*CRX) 4 MG/ML INJ IV PUSH (09:21)
[2023-05-17 10:10] LABS: Estimated CRCL calculation 67 ml/min; Estimated Glomerular Filt Rate > 60
[2023-05-17 10:21] LABS: Alanine Aminotransferase 24 U/L (6-35); Albumin Level 3.8 g/dL (3.5-5.1); Alkaline Phosphatase 117 U/L (38-126); Anion Gap 14 mmol/L (8-16); Aspartate Amino Transferase 42 U/L (14-36); Bilirubin,Total 0.5 mg/dL (0.2-1.3); Blood Urea Nitrogen 15 mg/dL (7-17); Calcium 8.2 mg/dL (8.4-10.2); Carbon Dioxide 19 mmol/L (22-30); Chloride 109 mmol/L (98-107); Estimated CRCL calculation 77 ml/min; Estimated Glomerular Filt Rate > 60; Glucose 37 mg/dL (65-110); Lipase 46 U/L (23-300); Potassium 3.4 mmol/L (3.4-5.0); Sodium 142 mmol/L (137-145)
[2023-05-17] MEDS: DEXTROSE 50% 25 GM/50 ML SYRINGE (10:25)
[2023-05-17 10:46] LABS: Appearance Urine Clear (Clear); Bilirubin Urine Negative (Negative); Blood Urine Negative (Negative); Color Urine Yellow (Yellow); Glucose Urine UA Negative (Negative); Ketones Urine 2+ mg/dL (Negative); Leukocyte Esterase Ur Negative LEU/UL (Negative); Nitrate Urine Negative (Negative); Protein Urine Negative (Negative); Urobilinogen Urine 0.2 mg/dL (<2.0)
[2023-05-17 10:54] LABS: Add Urine Microscopic? NO; Specific Grav Ur 1.032 (1.001-1.035)
[2023-05-17 10:54] LABS: Glucose Point of Care 190 mg/dl (65-105)
[2023-05-17] MEDS: PROMETHAZINE HCL 25 MG/ML AMPUL 12.5 MG IV PUSH ×2 (10:56→21:09)
[2023-05-17] MEDS: DICYCLOMINE HCL INJ 20 MG/2 ML VIAL IM (10:56)
[2023-05-17] MEDS: LACTATED RINGERS 1,000 ML 999 ML IV CONT (10:57)
[2023-05-17] MEDS: FAMOTIDINE 20 MG/2 ML VIAL IV PUSH (11:33)
[2023-05-17] MEDS: LORazepam INJ (*CRX) 2 MG/ML VIAL 1 MG IV PUSH (11:33)
[2023-05-17] MEDS: BELLADONNA ALK/PHENOB ELIX 10 ML, MAG HYDROX/ALUMINUM HYD/SIMETH 30 ML, LIDOCAINE HCL 2... PO (11:34)
[2023-05-17] MEDS: diazePAM INJ (*CRX) 10 MG/2 ML SYRINGE 5 MG IV PUSH (12:46)
--- NOTE | 2023-05-17 14:17 | ED.NAVMDI ---
HPI - Nausea/Vomiting/Diarrhea General Chief complaint: Nausea/Vomiting/Diarrhea Stated complaint: n/v Time Seen by Provider: 05/17/23 07:45 History of Present Illness HPI Narrative: Patient is a 63-year-old female who presents ER with nausea vomiting. Began around 11:00 p.m. last night. Has been persistent since then. Reports she has abdominal cramping along with this. No diarrhea. Denies fevers or chills or sweats. Reports she did have a couple of alcoholic drinks last night at the [place]. This is not typical of her and she is not a heavy drinker. No fevers or chills. No alleviating factors at home. Related Data Home Medications Medication Instructions Recorded Confirmed clonazepam 0.5 mg tablet 0.5 mg PO TID 11/25/19 05/17/23 bupropion HCl 150 mg 24 hr tablet, 150 mg PO BID 10/15/21 05/17/23 extended release (Wellbutrin XL) calcium carbonate 600 mg calcium 600 mg PO HS 10/31/22 05/17/23 (1,500 mg) tablet (Calcium) cholecalciferol (vitamin D3) 25 25 mcg PO HS 10/31/22 05/17/23 mcg (1,000 unit) capsule multivitamin (Multiple Vitamins 1 tablet PO HS 10/31/22 05/17/23 tablet) Allergies Allergy/AdvReac Type Severity Reaction Status Date / Time Penicillins Allergy Unknown Scratchy Verified 04/26/23 10:46 palms PMFSH Past Medical History Medical History Abdominal pain Anxiety and depression Belching COPD (chronic obstructive pulmonary disease) DDD (degenerative disc disease) GERD (gastroesophageal reflux disease) History of ectopic Hx of adenomatous colonic polyps Hypertension Irritable bowel syndrome with mixed bowel habits PTSD (post-traumatic stress disorder) RLQ abdominal tenderness Ruptured appendix Surgical History Surgical History History of abdominoplasty History of section x 2 History of hysterectomy Hx of bilateral breast reduction surgery Family History Family History (Updated 05/17/23 @ 18:06 by Aparna Moreno RN) Mother Family history of malignant neoplasm of breast in first degree relative Father Mesothelioma Sibling No problems noted. Legal Guardian No problems noted. Grandparent DVT (deep venous thrombosis) Social History Social History Years smoked: 20 Smoking status: Current some day smoker Tobacco type: cigarettes Smoking end date: 03/03/19 Alcohol intake: never Substance use: current Substance use type: marijuana Other substance usage details: Occasional Do You Feel Safe in your Home?: Yes Lack of Transportation: No Lack of Food: Never True Current Housing: I Have Housing Concerned About Future Housing: No Difficulty Paying Gas/Electric Bills: YES Difficulty Paying for Meds: YES Currently Unemployed: No Education: Associate Degree Difficulty w/ Childcare or Family Care: No Gender identity (if verbalized by the patient): Female Spiritual care concerns: No Exam Narrative: GENERAL: uncomfortable appearing, well-nourished, and in moderate distress. HEAD: Normocephalic, atraumatic. EYES: PERRL and EOMI. ENT: Mucous membranes moist. CHEST: Clear to auscultation. No respiratory distress. HEART: tachycardic and regular. Normal peripheral pulses. ABDOMEN: Soft, nontender, nondistended. EXTREMITIES: Normal range of motion. No edema. SKIN: Warm, dry, no rash. NEURO: Alert and oriented x3. PSYCH: Normal mood and affect. Course Course Emergency Course: Patient has had multiple doses of nausea medication as well as pain medication. She continues to have some dry heaves as well as vomiting when she drinks something. We tried to treat her anxiety but despite 1 mg of Ativan and 5 mg of Valium patient has persistent tachycardia. Patient denies heavy alcohol use and has no history of alcohol withdrawal.
--- NOTE | 2023-05-17 17:33 | ADMGEN ---
This patient, Juana Salinas, was admitted to Medical Room 252-01. Patient/family oriented to hospital policies and general routines including ID bracelet, bed and alarms, visiting hours, pain management, procedures, bathroom and other care routines, personal items, smoking policy, room service/diet, and visiting hours. Information on how to activate the Rapid Response Team has been discussed. Patient/Family are encouraged to report perceived risks to care and to ask questions if they do not understand what they are told or what they should do.
[2023-05-17] MEDS: SODIUM CHLORIDE 0.9% IV 1,000 ML 125 ML IV CONT (17:52)
--- NOTE | 2023-05-17 18:12 | PM.IMHP ---
H&P: HPI History of Present Illness Date/Time: 05/17/23 18:12 Chief Complaint: Nausea and Vomiting Narrative: 63 y/o F presents here with nausea and vomiting with PMH of anxiety and depression, ADHD, COPD, GERD, HTN, IBS, and PTSD. Patient presents here from home for evaluation of nausea, vomiting, and abdominal cramping that began around 11:00 p.m. last night. Symptoms have been persistent. Abdominal pain primarily located lower, bilateral and now more so on the right. Currently having some upper abdominal pain/chest pain secondary to dry heaving. Aggravating or alleviating factors - knees to chest or on all fours alleviates the pain, no aggravating factors. Denies diarrhea, fever, or chills. Patient did have a few alcoholic drinks last night, states this is not typical for her and she is not a heavy drinker. On average drinks one evening every other weekend. Patient initially hypoglycemic upon presentation, glucose 37. Last able to eat dinner (fish tacos) last night before going out. Given dextrose, increased to 190. Despite antiemetics and anxiety lytics in the ED, patient continues to have nausea, dry heaving, and tachycardia. Recently started on amitriptyline and Bentyl for her IBS, 3 weeks. Not on any medications for weight loss and no previous hx of DM. Utilized oral marijuana for insomnia, last gummy on 04/23. Initial VS at presentation: 99.9 F, HR 108, RR 23, 157/81, 94% on RA. ED workup showed: WBC 20.5, creatinine 0.7, glucose 37, calcium 8.2, AST 42, lipase 46, UA unremarkable. CT of the abdomen pelvis showed no acute intra-abdominal/pelvic process and crossed fused renal ectopia. Review of Systems Review of Systems: All systems reviewed & are unremarkable except as noted in HPI and below PMFSH Past Medical History Medical History Abdominal pain Anxiety and depression Belching COPD (chronic obstructive pulmonary disease) DDD (degenerative disc disease) GERD (gastroesophageal reflux disease) History of ectopic Hx of adenomatous colonic polyps Hypertension Irritable bowel syndrome with mixed bowel habits PTSD (post-traumatic stress disorder) RLQ abdominal tenderness Ruptured appendix Surgical History Surgical History History of abdominoplasty History of section x 2 History of hysterectomy Hx of bilateral breast reduction surgery Family History Family History Mother Family history of malignant neoplasm of breast in first degree relative Father Mesothelioma Sibling No problems noted. Legal Guardian No problems noted. Grandparent DVT (deep venous thrombosis) Social History Social History Years smoked: 20 Smoking status: Current some day smoker Tobacco type: cigarettes Smoking end date: 03/03/19 Alcohol intake: never Substance use: current Substance use type: marijuana Other substance usage details: Occasional Do You Feel Safe in your Home?: Yes Lack of Transportation: No Lack of Food: Never True Current Housing: I Have Housing Concerned About Future Housing: No Difficulty Paying Gas/Electric Bills: YES Difficulty Paying for Meds: YES Currently Unemployed: No Education: Associate Degree Difficulty w/ Childcare or Family Care: No Gender identity (if verbalized by the patient): Female Spiritual care concerns: No Meds Home Medications and Allergies Home Medications Medication Instructions Recorded Confirmed Type clonazepam 0.5 mg tablet 0.5 mg PO TID 11/25/19 05/17/23 History bupropion HCl 150 mg 24 hr tablet, 150 mg PO BID 10/15/21 05/17/23 History extended release (Wellbutrin XL) calcium carbonate 600 mg calcium 600 mg PO HS 10/31/22 05/17/23 History (1,500 mg) tablet (Calcium) cholecal
[2023-05-17 20:34] LABS: Influenza A QL RT-PCR Negative (Negative); Influenza B QL RT-PCR Negative (Negative); RSV RNA, RT-PCR Negative (Negative); SARS-CoV-2 RNA PCR Negative (Negative)
--- NOTE | 2023-05-17 22:56 | PC.NURSE ---
Holding PO meds until nausea subsides
[2023-05-18] VITALS (10 sets, daily range): BP systolic 100–180; BP diastolic 54–100; PULSE 93–120; RESP 16–20; TEMP 36.6–37.3; O2SAT 95–97
[2023-05-18 00:09] LABS: Glucose Point of Care 107 mg/dl (65-105)
[2023-05-18] MEDS: diphenhydrAMINE HCl INJ 50 MG/ML VIAL 25 MG IV PUSH (00:19)
--- NOTE | 2023-05-18 00:30 | ECG_ITS ---
Measurements Intervals [place] Rate: 119 P: IA: 0 QRS: 76 QRSD: 90 T: 72 QT: 335 QTc: 472 Interpretive Statements SINUS TACHYCARDIA BASELINE WANDER- II, III, AVF ABNORMAL ECG COMPARED TO ECG 04/26/2023 12:58:04 NO SIGNIFICANT CHANGES Electronically Signed On 05-18-2023 8:05:01 CDT by Yazan Argueta D.O.
[2023-05-18] MEDS: PROMETHAZINE HCL 25 MG/ML AMPUL IM ×2 (01:59→06:10)
[2023-05-18] MEDS: SODIUM CHLORIDE 0.9% IV 1,000 ML 125 ML IV CONT ×2 (01:59→11:37)
[2023-05-18] MEDS: cloNIDine HCL 0.2 MG TABLET PO ×3 (03:41→22:14)
[2023-05-18 05:57] LABS: Basophils Percent Auto 0.2 % (0.2-1.2); Hematocrit 43.6 % (37.0-47.0); Hemoglobin 14.8 g/dL (12.0-15.0); Immature Granulocyte Absolute 0.09 K/mm3 (0.00-0.031); Immature Granulocyte Percent A 0.5 % (0-0.5); Lymphocytes Absolute Auto 2.02 K/mm3 (0.9-3.2); Lymphocytes Percent Auto 10.3 % (18.3-44.2); Mean Corpuscular HGB Conc 33.9 g/dl (32-36); Mean Corpuscular Hemoglobin 29.4 pg (26-34); Mean Corpuscular Volume 86.5 fl (80-100); Mean Platelet Volume 10.2 fl (7.4-10.4); Monocytes Absolute Auto 0.8 K/mm3 (0.1-0.6); Monocytes Percent Auto 4.2 % (2.6-8.5); Neutrophils Absolute Auto 16.6 K/mm3 (1.3-6.7); Neutrophils Percent Auto 84.8 % (45.5-73.1); Platelet Count Result 296 k/mm3 (150-375); Red Blood Count 5.04 M/mm3 (4.2-5.4); Red Cell Distribution Width 13.2 % (11.5-14.5); White Blood Count 19.5 K/mm3 (4.5-10.0)
[2023-05-18 06:08] LABS: Alanine Aminotransferase 38 U/L (6-35); Albumin Level 4.9 g/dL (3.5-5.1); Alkaline Phosphatase 149 U/L (38-126); Anion Gap 11 mmol/L (8-16); Aspartate Amino Transferase 73 U/L (14-36); Bilirubin,Total 1.5 mg/dL (0.2-1.3); Blood Urea Nitrogen 12 mg/dL (7-17); Calcium 9.2 mg/dL (8.4-10.2); Carbon Dioxide 23 mmol/L (22-30); Chloride 98 mmol/L (98-107); Estimated CRCL calculation 67 ml/min; Estimated Glomerular Filt Rate > 60; Glucose 121 mg/dL (65-110); Potassium 3.6 mmol/L (3.4-5.0); Sodium 132 mmol/L (137-145)
[2023-05-18 06:36] LABS: Glucose Point of Care 125 mg/dl (65-105)
[2023-05-18 07:40] LABS: Hemoglobin A1C 5.9 % (<5.7)
[2023-05-18] MEDS: METOPROLOL TARTRATE INJ 5 MG/5 ML VIAL IV PUSH (08:35)
[2023-05-18] MEDS: PANTOPRAZOLE SODIUM IV 40 MG VIAL IV PUSH (08:36)
[2023-05-18] MEDS: clonazePAM (*CRX) 0.5 MG TABLET PO ×3 (08:36→18:48)
[2023-05-18] MEDS: buPROPion HCL XL (24 HR) 150 MG TABCR PO ×2 (11:36→20:33)
[2023-05-18] MEDS: CIPROFLOXACIN 400 MG/D5W 200ML 200 ML 200 MG IVPB ×2 (11:37→20:34)
[2023-05-18 11:47] LABS: Glucose Point of Care 114 mg/dl (65-105)
--- NOTE | 2023-05-18 14:56 | WPDGICN ---
Assessment and Plan Assessment and plan (1) Intractable nausea and vomiting: Code(s): R11.2 - Nausea with vomiting, unspecified Status: Acute Assessment and Plan: wonder if could be part of gastroenteritis she is already feeling better with no more emesis but still some nausa will reassess tomorrow, if still having issues then consider egd the following day liquid diet and advanced as tolerated (2) Gastroenteritis: Code(s): K52.9 - Noninfective gastroenteritis and colitis, unspecified Status: Acute Assessment and Plan: supportive care (3) Hypoglycemia: Code(s): E16.2 - Hypoglycemia, unspecified Status: Acute Assessment and Plan: treated (4) Leukocytosis: Qualifiers: Leukocytosis type: unspecified Qualified Code(s): D72.829 - Elevated white blood cell count, unspecified Code(s): D72.829 - Elevated white blood cell count, unspecified Status: Acute Assessment and Plan: repeat labs (5) Abdominal pain: Code(s): R10.9 - Unspecified abdominal pain Status: Acute Assessment and Plan: CT scan reviewed (6) Irritable bowel syndrome with mixed bowel habits: Code(s): K58.2 - Mixed irritable bowel syndrome Status: Acute (7) Elevated liver enzymes: Code(s): R74.8 - Abnormal levels of other serum enzymes Status: Acute Assessment and Plan: had normal labs previously probably from acute process monitor get hepatitis panel unremarkable ct scan GI Consult Note Consult date/time: 05/18/23 14:56 Reason for consult: n/v HPI: Juana Salinas is a 63 year old female who is our clinic patient with IBS-C managed with bentyl and elavil, her last colonoscopy 01/2023 with TA polyps, no colitis or other findings. She came here from home for evaluation of nausea, vomiting, and abdominal cramping that started Friday night after she had tuna taco, also had a drink (normally she is not a drinker). Then with intractable nausea and vomiting, also had lower abdominal pain. On arrival also with hypoglycemia glucose 37 which was treated. Now no more emesis but still some nausea, feeling better. She also had chills day of admission, no diarrhea. ?WBC 20.5, creatinine 0.7, glucose 37, calcium 8.2, AST 42, lipase 46, bili 1.5.? CT of the abdomen pelvis showed no acute intra-abdominal/pelvic process and crossed fused renal ectopia. Review of Systems Constitutional: Constitutional: Reports chills Eyes: Eyes: Denies blurry vision ENT: Reports Normal hearing present Cardiovascular: Cardiovascular: Denies chest pain Respiratory: Respiratory: Denies cough Gastrointestinal: Gastrointestinal: Reports abdominal pain, Reports nausea and Reports vomiting Genitourinary: Genitourinary: Denies urinary urgency Musculoskeletal: Musculoskeletal: Denies neck pain Integumentary/Breasts: Skin/Breast: Denies rash Neurologic: Denies Abnormal speech present Psychiatric: Psychiatric: Denies behavioral changes [facility] Past Medical History Medical History (Updated 05/18/23 @ 15:01 by Zachary Todd MD) Abdominal pain Anxiety and depression Belching COPD (chronic obstructive pulmonary disease) DDD (degenerative disc disease) Elevated liver enzymes Gastroenteritis GERD (gastroesophageal reflux disease) History of ectopic Hx of adenomatous colonic polyps Hypertension Irritable bowel syndrome with mixed bowel habits PTSD (post-traumatic stress disorder) RLQ abdominal tenderness Ruptured appendix Surgical History Surgical History History of abdominoplasty History of section x 2 History of hysterectomy Hx of bilateral breast reduction surgery Family History Family History Mother Family history of malignant neoplasm of breast in first degree relative Father [place]
[2023-05-18] MEDS: HYDROcodone/acetaminophen (*CRX) 5-325 MG TABLET 1 TAB PO ×2 (15:18→20:32)
--- NOTE | 2023-05-18 15:21 | PM.IMPN ---
Progress Note: A&P Assessment and Plan (1) Intractable nausea and vomiting: Code(s): R11.2 - Nausea with vomiting, unspecified Status: Acute Assessment and Plan: - CT abd/pelvis 1. No acute intra-abdominal/pelvic process. 2. Crossed fused renal ectopia. - WBC 20.5 -19.5 - UA: 2+ ketones - fluid resuscitated: 3L, continued at 125 mL/hr - 05/18/2023: Cut down IV fluids to 75 cc an hour - continue to trend labs - antiemetics p.r.n., Benadryl x1 for nausea/agitation - pantoprazole IVP 40 QAM - trend WBC, hold on empiric abx. Suspect reactive. - viral PCR negative for COVID, flu, RSV - patient started on clear liquid diet, advanced to full liquid diet (2) Hypoglycemia: Code(s): E16.2 - Hypoglycemia, unspecified Status: Acute Assessment and Plan: - initially hypoglycemic at 37, given dextrose and now 190 - no previous hx of DM - A1C 5.6% in 2021 - POC glucose Q6H until able to tolerate PO (3) Leukocytosis: Qualifiers: Leukocytosis type: unspecified Qualified Code(s): D72.829 - Elevated white blood cell count, unspecified Code(s): D72.829 - Elevated white blood cell count, unspecified Status: Acute Assessment and Plan: - WBC slowly trending downwards 20.5 -19.5 - not on steroids - CXR: no acute cardiopulmonary disease. - UA unremarkable - CT of the abd/pelvis showed no acute process - trend WBC, suspect it is reactive Plan 05/17/2023: Here with intractable nausea, vomiting, and abdominal cramping. Elevated WBC at 20.5. No clear etiology, CT of the abdomen pelvis was unremarkable, CXR was unremarkable, UA unremarkable. Viral PCR pending. Adequately fluid resuscitated. Antiemetics p.r.n.. Trend labs. 05/18/2023: Nausea and vomiting is slowly improving. Patient went to the bars over the weekend and had some food. Started on Cipro 400 mg IV b.i.d. She has irritable bowel syndrome. GI consult given. Trend labs. Advanced to full liquid diet. Monitor closely Home Meds/Chronic Conditions - continue amitriptyline, Wellbutrin, calcium, vitamin D3, Klonopin, clonidine, Bentyl, and multivitamin Diet: Full liquid diet GI Prophylaxis: pantoprazole IVP DVT Prophylaxis: SCDs Lines: peripheral Code Status: Full Code ? Patient seen and examined at bedside during my morning rounds ? Collaborated with patient's nurse at the bedside in detail and addressed all concerns ? Labs, electrolytes, radiology, investigations and test results reviewed ? Consult/Nursing/Ancilliary notes on the chart reviewed and appreciated ? Spoke with patient/family at the bedside and answered all the questions that they had Repeat labs in a.m. Electrolyte replacement as per protocol. Patient will be monitored very closely on the floor. Further recommendations as per the hospital course. Time Spent With Patient Time with patient: 15 - 25 minutes Subjective Date/time seen: 05/18/23 15:21 Interval history: Patient seen and evaluated at bedside. Her nausea and vomiting is slowly improving. She went out with friends in a couple of bars and had some food. GI consulted Review of Systems Review of Systems: All systems reviewed & are unremarkable except as noted in HPI and below Exam Narrative: PHYSICAL EXAMINATION: Vital signs: Please see the chart General physical exam: Patient lying in bed, feels weak and tired and fatigued, pleasant and cooperative with exam Head/eyes: Atraumatic, EOMI, PERRLA ENT: Moist mucous membranes, nasal passages clear Neck: Supple, full range of motion, trachea midline CVS: S1 + S2, regular rate and rhythm, no murmurs Respiratory: Bilaterally fair air entry in both lung jones, mild B/L crackles, symmetric chest expansion, no distress Abdomen: Soft, + mild abdominal tenderness on palpation, bowel sounds +ve, no organomegaly Extremities: No clubbing, no cyanosis, no edema, no calf tenderness Musculoskeletal: Moves all, adequate range
[2023-05-18 18:01] LABS: Glucose Point of Care 118 mg/dl (65-105)
[2023-05-18] MEDS: CHOLECALCIFEROL 1,000 UNITS TABLET 1000 UNITS PO (20:33)
[2023-05-18] MEDS: CALCIUM CARBONATE (OSCAL) 500 MG TABLET PO (20:33)
[2023-05-18] MEDS: MULTIVITAMINS THERAPEUTIC TAB (*BKC) 1 TABLET PO (20:33)
[2023-05-18] MEDS: AMITRIPTYLINE HCL 25 MG TABLET PO (22:14)
[2023-05-18] MEDS: SODIUM CHLORIDE 0.9% IV 1,000 ML 75 ML IV CONT (22:15)
[2023-05-19] VITALS (13 sets, daily range): BP systolic 82–116; BP diastolic 55–80; PULSE 80–100; RESP 16–22; TEMP 36.4–36.6; O2SAT 95–98
[2023-05-19 02:00] LABS: Glucose Point of Care 89 mg/dl (65-105)
[2023-05-19] MEDS: SODIUM CHLORIDE 0.9% IV 500 ML IV CONT (03:32)
[2023-05-19 05:09] LABS: Basophils Percent Auto 0.3 % (0.2-1.2); Eosinophils Absolute Auto 0.1 K/mm3 (0-0.3); Eosinophils Percent Auto 0.7 % (0-4.4); Hematocrit 39.9 % (37.0-47.0); Hemoglobin 13.1 g/dL (12.0-15.0); Immature Granulocyte Absolute 0.04 K/mm3 (0.00-0.031); Immature Granulocyte Percent A 0.3 % (0-0.5); Lymphocytes Absolute Auto 3.37 K/mm3 (0.9-3.2); Lymphocytes Percent Auto 28.2 % (18.3-44.2); Mean Corpuscular HGB Conc 32.8 g/dl (32-36); Mean Corpuscular Volume 88.5 fl (80-100); Mean Platelet Volume 10.4 fl (7.4-10.4); Monocytes Absolute Auto 0.8 K/mm3 (0.1-0.6); Monocytes Percent Auto 6.5 % (2.6-8.5); Neutrophils Absolute Auto 7.7 K/mm3 (1.3-6.7); Platelet Count Result 244 k/mm3 (150-375); Red Blood Count 4.51 M/mm3 (4.2-5.4); Red Cell Distribution Width 13.2 % (11.5-14.5)
[2023-05-19 05:24] LABS: Alanine Aminotransferase 27 U/L (6-35); Albumin Level 3.5 g/dL (3.5-5.1); Alkaline Phosphatase 99 U/L (38-126); Anion Gap 3 mmol/L (8-16); Aspartate Amino Transferase 57 U/L (14-36); Bilirubin,Total 1.3 mg/dL (0.2-1.3); Blood Urea Nitrogen 19 mg/dL (7-17); Calcium 8.5 mg/dL (8.4-10.2); Carbon Dioxide 25 mmol/L (22-30); Chloride 105 mmol/L (98-107); Estimated CRCL calculation 44 ml/min; Estimated Glomerular Filt Rate 50; Glucose 102 mg/dL (65-110); Magnesium 2.2 mg/dL (1.6-2.3); Potassium 3.3 mmol/L (3.4-5.0); Sodium 133 mmol/L (137-145)
[2023-05-19 06:16] LABS: Glucose Point of Care 83 mg/dl (65-105)
[2023-05-19 06:33] LABS: Hepatitis B Surface Antigen Negative (Negative)
[2023-05-19 06:39] LABS: HAV RESULT Negative (Negative); Hepatitis B Core IgM Result Negative (Negative)
[2023-05-19 06:51] LABS: Hepatitis C Virus Antibody Negative (Negative)
[2023-05-19] MEDS: buPROPion HCL XL (24 HR) 150 MG TABCR PO ×2 (09:13→20:15)
[2023-05-19] MEDS: cloNIDine HCL 0.2 MG TABLET PO ×2 (09:13→20:15)
[2023-05-19] MEDS: clonazePAM (*CRX) 0.5 MG TABLET PO ×3 (09:13→17:26)
[2023-05-19] MEDS: POTASSIUM CHLORIDE 20 MEQ ER TABLET 40 MEQ PO (09:58)
[2023-05-19] MEDS: DICYCLOMINE HCL 10 MG CAPSULE 20 MG PO (09:58)
[2023-05-19] MEDS: PANTOPRAZOLE SODIUM IV 40 MG VIAL IV PUSH (11:48)
[2023-05-19] MEDS: CIPROFLOXACIN 400 MG/D5W 200ML 200 ML 200 MG IVPB ×2 (11:49→21:10)
[2023-05-19 11:57] LABS: Glucose Point of Care 107 mg/dl (65-105)
[2023-05-19] MEDS: POTASSIUM PHOS,M-BASIC-D-BASIC 40 MMOL in SODIUM CHLORIDE 0.9% IV 250 ML 43.89 MMOL IVPB (13:27)
--- NOTE | 2023-05-19 16:45 | PM.IMPN ---
Progress Note: A&P Assessment and Plan (1) Intractable nausea and vomiting: Code(s): R11.2 - Nausea with vomiting, unspecified Status: Acute Assessment and Plan: - CT abd/pelvis 1. No acute intra-abdominal/pelvic process. 2. Crossed fused renal ectopia. - WBC 20.5 -19.5-12 - UA: 2+ ketones - fluid resuscitated: 3L, continued at 125 mL/hr, now cut down to 125ml/hr - 05/18/2023: Cut down IV fluids to 75 cc an hour - 05/19/2023: Increased IV fluids to 100 cc an hour - continue to trend labs - antiemetics p.r.n., Benadryl x1 for nausea/agitation - pantoprazole IVP 40 QAM - trend WBC, hold on empiric abx. Suspect reactive. - viral PCR negative for COVID, flu, RSV - patient advanced to full liquid diet (2) Hypoglycemia: Code(s): E16.2 - Hypoglycemia, unspecified Status: Acute Assessment and Plan: - initially hypoglycemic at 37, given dextrose and now 190 - no previous hx of DM - A1C 5.6% in 2021 -glucose levels are now stable with Eating (3) Leukocytosis: Qualifiers: Leukocytosis type: unspecified Qualified Code(s): D72.829 - Elevated white blood cell count, unspecified Code(s): D72.829 - Elevated white blood cell count, unspecified Status: Acute Assessment and Plan: - WBC slowly trending downwards 20.5 -19.5-12 - not on steroids - CXR: no acute cardiopulmonary disease. - UA unremarkable - CT of the abd/pelvis showed no acute process - trend WBC, suspect it is reactive (4) Elevated liver enzymes: Code(s): R74.8 - Abnormal levels of other serum enzymes Status: Acute (5) Gastroenteritis: Code(s): K52.9 - Noninfective gastroenteritis and colitis, unspecified Status: Acute (6) Intractable vomiting: Code(s): R11.10 - Vomiting, unspecified Status: Acute (7) Abdominal pain: Code(s): R10.9 - Unspecified abdominal pain Status: Acute (8) GERD (gastroesophageal reflux disease): Code(s): K21.9 - Gastro-esophageal reflux disease without esophagitis Status: Acute (9) Belching: Code(s): R14.2 - Eructation Status: Acute (10) Irritable bowel syndrome with mixed bowel habits: Code(s): K58.2 - Mixed irritable bowel syndrome Status: Acute (11) Smokes with greater than 30 pack year history: Code(s): F17.210 - Nicotine dependence, cigarettes, uncomplicated Status: Acute (12) Vitamin D deficiency: Code(s): E55.9 - Vitamin D deficiency, unspecified Status: Acute (13) Lumbar radiculopathy: Code(s): M54.16 - Radiculopathy, lumbar region Status: Acute (14) Postmenopausal: Code(s): Z78.0 - Asymptomatic menopausal state Status: Acute (15) Hyperlipidemia: Qualifiers: Hyperlipidemia type: mixed hyperlipidemia Qualified Code(s): E78.2 - Mixed hyperlipidemia Code(s): E78.5 - Hyperlipidemia, unspecified Status: Acute (16) Anxiety and depression: Code(s): F41.9 - Anxiety disorder, unspecified; F32.9 - Major depressive disorder, single episode, unspecified Status: Acute (17) Hypokalemia: Code(s): E87.6 - Hypokalemia Status: Acute (18) Hypophosphatemia: Code(s): E83.39 - Other disorders of phosphorus metabolism Status: Acute (19) Electrolyte imbalance: Code(s): E87.8 - Other disorders of electrolyte and fluid balance, not elsewhere classified Status: Acute Plan 05/17/2023: Here with intractable nausea, vomiting, and abdominal cramping. Elevated WBC at 20.5. No clear etiology, CT of the abdomen pelvis was unremarkable, CXR was unremarkable, UA unremarkable. Viral PCR pending. Adequately fluid resuscitated. Antiemetics p.r.n.. Trend labs. 05/18/2023: Nausea and vomiting is slowly improving. Patient went to the bars over the weekend and had some food. Started on Cipro 400 mg IV b.i.d. She has irritable bowel syndrome. GI consult gi
--- NOTE | 2023-05-19 16:46 | WPDGIPROGNO ---
Progress Note: A&P Assessment and Plan (1) Gastroenteritis: Code(s): K52.9 - Noninfective gastroenteritis and colitis, unspecified Status: Acute Assessment and Plan: improving, wbc trending down advance diet as tolerated (2) Leukocytosis: Qualifiers: Leukocytosis type: unspecified Qualified Code(s): D72.829 - Elevated white blood cell count, unspecified Code(s): D72.829 - Elevated white blood cell count, unspecified Status: Acute (3) Intractable nausea and vomiting: Code(s): R11.2 - Nausea with vomiting, unspecified Status: Acute Assessment and Plan: this is better (4) Hypoglycemia: Code(s): E16.2 - Hypoglycemia, unspecified Status: Acute Assessment and Plan: resolved (5) Elevated liver enzymes: Code(s): R74.8 - Abnormal levels of other serum enzymes Status: Acute Assessment and Plan: trending down hepatitis negative unremarkable CT scan (6) Abdominal pain: Code(s): R10.9 - Unspecified abdominal pain Status: Acute Assessment and Plan: better (7) Irritable bowel syndrome with mixed bowel habits: Code(s): K58.2 - Mixed irritable bowel syndrome Status: Acute Subjective Date/time seen: 05/19/23 16:46 Interval history: less nausea and feeling better, tolerating liquid diet Review of Systems Review of Systems: All systems reviewed & are unremarkable except as noted in HPI and below Exam Const: General: no acute distress and uncomfortable HENMT: Face/Nose/Sinus: Normal nares present Mouth: Yes moist mucous membranes Eyes: General: appearance normal, both eyes and all related structures Sclera: sclerae normal Pupils: Equal, round and reactive pupils present Resp: Effort & Inspection: normal respiratory effort Auscultation: clear to auscultation bilaterally Cardio: Rhythm: regular rhythm GI: GI Palp: Yes Soft to palpation and No Guarding due to palpation present (GI) Auscultation: normal bowel sounds Skin: General skin exam: normal color and no rashes or lesions noted Wounds: no wounds Neuro: Speech: normal speech Motor exam (neuro): 5/5 motor strength present throughout Sensory Exam: normal sensation Other: A&O x4 Extrem: General: normal to inspection Psych: Mental Status: mental status grossly normal Affect: Anxious affect present Objective Data Vital Signs Vital Signs: Vital Signs - 24 hr 05/18/23 22:05 05/19/23 01:50 05/18/23 20:20 Temperature 97.8 F Pulse Rate 93 88 Respiratory Rate 16 Blood Pressure 100/54 L 82/60 L Pulse Oximetry 95 Oxygen Delivery Room Air 05/19/23 02:47 05/18/23 20:00 05/19/23 00:00 Temperature Pulse Rate 99 89 Respiratory Rate Blood Pressure 88/60 L Pulse Oximetry Oxygen Delivery 05/19/23 04:49 05/19/23 04:00 05/19/23 09:10 Temperature 97.6 F Pulse Rate 80 82 99 Respiratory Rate 16 Blood Pressure 102/58 L 116/80 Pulse Oximetry 95 95 Oxygen Delivery 05/19/23 14:00 05/19/23 08:00 05/19/23 12:00 Temperature 97.9 F Pulse Rate 90 85 89 Respiratory Rate 22 H Blood Pressure 96/59 L Pulse Oximetry 95 Oxygen Delivery 05/19/23 09:15 Temperature Pulse Rate Respiratory Rate Blood Pressure Pulse Oximetry Oxygen Delivery Room Air Intake/Output Intake/Output: Intake & Output 05/16/23 05/17/23 05/18/23 05/19/23 23:59 23:59 23:59 23:59 Intake Total 3000 4070.0 710 Output Total 2800 450 Balance 3000 1270.0 260 Meds/Results Medications: Active Medications Generic Name Dose Route Start Last Admin Trade Name Freq PRN Reason Stop Dose Admin Acetaminophen 650 mg 05/17/23 15:37 Acetaminophen 325 Mg Tablet PO Q4H PRN Mild Pain (1-3) or Fever Hydrocodone Bitart/Acetaminophen 1 tab 05/17/23 15:37 05/18/23 20:32 Hydrocodone/Acetaminophen (*Crx) 5-325 Mg Tablet PO 1 tab Q4H PRN Administration Linnette
[2023-05-19] MEDS: SODIUM CHLORIDE 0.9% IV 1,000 ML 100 ML IV CONT (17:29)
[2023-05-19] MEDS: HYDROcodone/acetaminophen (*CRX) 5-325 MG TABLET 1 TAB PO ×2 (17:51→21:43)
[2023-05-19 18:34] LABS: Glucose Point of Care 139 mg/dl (65-105)
[2023-05-19] MEDS: MULTIVITAMINS THERAPEUTIC TAB (*BKC) 1 TABLET PO (20:15)
[2023-05-19] MEDS: AMITRIPTYLINE HCL 25 MG TABLET PO (20:15)
[2023-05-19] MEDS: CALCIUM CARBONATE (OSCAL) 500 MG TABLET PO (20:15)
[2023-05-19] MEDS: CHOLECALCIFEROL 1,000 UNITS TABLET 1000 UNITS PO (20:15)
[2023-05-20 00:01] VITALS: PULSE 85
[2023-05-20] MEDS: SODIUM CHLORIDE 0.9% IV 1,000 ML 100 ML IV CONT (03:53)
[2023-05-20 04:04] VITALS: PULSE 78
[2023-05-20 05:38] VITALS: BP 135/76; PULSE 89; RESP 18; TEMP 36.7; O2SAT 97
[2023-05-20 05:57] LABS: Basophils Absolute Auto 0.1 K/mm3 (0.0-0.1); Basophils Percent Auto 0.5 % (0.2-1.2); Eosinophils Absolute Auto 0.2 K/mm3 (0-0.3); Eosinophils Percent Auto 1.6 % (0-4.4); Hematocrit 38.2 % (37.0-47.0); Hemoglobin 12.5 g/dL (12.0-15.0); Immature Granulocyte Absolute 0.01 K/mm3 (0.00-0.031); Immature Granulocyte Percent A 0.1 % (0-0.5); Lymphocytes Percent Auto 41.3 % (18.3-44.2); Mean Corpuscular HGB Conc 32.7 g/dl (32-36); Mean Corpuscular Hemoglobin 29.1 pg (26-34); Mean Platelet Volume 10.9 fl (7.4-10.4); Monocytes Absolute Auto 0.8 K/mm3 (0.1-0.6); Monocytes Percent Auto 8.3 % (2.6-8.5); Neutrophils Absolute Auto 4.4 K/mm3 (1.3-6.7); Neutrophils Percent Auto 48.2 % (45.5-73.1); Platelet Count Result 222 k/mm3 (150-375); Red Blood Count 4.29 M/mm3 (4.2-5.4); Red Cell Distribution Width 13.4 % (11.5-14.5); White Blood Count 9.2 K/mm3 (4.5-10.0)
[2023-05-20 06:07] LABS: Alanine Aminotransferase 23 U/L (6-35); Albumin Level 3.3 g/dL (3.5-5.1); Alkaline Phosphatase 87 U/L (38-126); Anion Gap 1 mmol/L (8-16); Aspartate Amino Transferase 42 U/L (14-36); Bilirubin,Total 1.1 mg/dL (0.2-1.3); Blood Urea Nitrogen 16 mg/dL (7-17); Calcium 8.4 mg/dL (8.4-10.2); Carbon Dioxide 27 mmol/L (22-30); Chloride 109 mmol/L (98-107); Estimated CRCL calculation 59 ml/min; Estimated Glomerular Filt Rate > 60; Glucose 87 mg/dL (65-110); Potassium 3.6 mmol/L (3.4-5.0); Sodium 137 mmol/L (137-145)
[2023-05-20 08:00] VITALS: PULSE 94
[2023-05-20 08:27] VITALS: BP 140/79; PULSE 90; O2SAT 96
[2023-05-20] MEDS: clonazePAM (*CRX) 0.5 MG TABLET PO (08:28)
[2023-05-20] MEDS: cloNIDine HCL 0.2 MG TABLET PO (08:28)
[2023-05-20] MEDS: buPROPion HCL XL (24 HR) 150 MG TABCR PO (08:28)
[2023-05-20] MEDS: POTASSIUM CHLORIDE 20 MEQ PACKET (FOR LIQUID) 40 MEQ PO (08:29)
[2023-05-20] MEDS: PANTOPRAZOLE SODIUM IV 40 MG VIAL IV PUSH (08:30)
[2023-05-20] MEDS: CIPROFLOXACIN 400 MG/D5W 200ML 200 ML 200 MG IVPB (08:31)
--- NOTE | 2023-05-20 09:35 | PM.DS ---
DS: Admitting Diagnosis Discharge Date 05/20/23 Admitting Diagnosis Acute gastroenteritis DS: Discharge Diagnosis Discharge Diagnosis (1) Electrolyte imbalance: Code(s): E87.8 - Other disorders of electrolyte and fluid balance, not elsewhere classified Status: Acute (2) Gastroenteritis: Code(s): K52.9 - Noninfective gastroenteritis and colitis, unspecified Status: Acute DS: Summary Hospital Course Reason for hospitalization: Acute gastroenteritis Hospital Course: 63 y/o F presented here with nausea and vomiting with PMH of anxiety and depression, ADHD, COPD, GERD, HTN, IBS, and PTSD. CT abdomen was unremarkable. Was treated with ceftriaxone, Flagyl while in the hospital. GI was consulted as well. Symptoms improved. Discharge home on oral antibiotics to complete a total 5 day course. Status at Discharge Functional status at discharge: independent ambulation Overall status at discharge: patient is back to baseline Time Spent with Patient Time attestation: Total time spent providing and/or coordinating discharge services: Time spent: Greater than 30 minutes Exam Const: General: no acute distress and uncomfortable HENMT: Face/Nose/Sinus: Normal nares present Mouth: Yes moist mucous membranes Eyes: General: appearance normal, both eyes and all related structures Sclera: sclerae normal Pupils: Equal, round and reactive pupils present Resp: Effort & Inspection: normal respiratory effort Auscultation: clear to auscultation bilaterally Cardio: Rhythm: regular rhythm GI: GI Palp: Yes Soft to palpation and No Guarding due to palpation present (GI) Auscultation: normal bowel sounds Skin: General skin exam: normal color and no rashes or lesions noted Wounds: no wounds Neuro: Speech: normal speech Motor exam (neuro): 5/5 motor strength present throughout Sensory Exam: normal sensation Other: A&O x4 Extrem: General: normal to inspection Psych: Mental Status: mental status grossly normal Affect: Anxious affect present DS: Data Data Completed and Pending Labs on day of discharge: Labs from last 24 hours 05/20/23 05/19/23 05/19/23 05:34 18:05 11:52 WBC 9.2 RBC 4.29 Hgb 12.5 Hct 38.2 MCV 89.0 MCH 29.1 MCHC 32.7 RDW 13.4 Plt Count 222 MPV 10.9 H Immature Gran % (Auto) 0.1 Neut % (Auto) 48.2 Lymph % (Auto) 41.3 [place] % (Auto) 8.3 Eos % (Auto) 1.6 Baso % (Auto) 0.5 Lymph # (Auto) 3.80 H [place] # (Auto) 0.8 H Eos # (Auto) 0.2 Baso # (Auto) 0.1 Abs Immat Gran (auto) 0.01 Absolute Neuts (auto) 4.4 Absolute Nucleated RBC 0.000 Nucleated RBC % 0.0 Sodium 137 Potassium 3.6 Chloride 109 H Carbon Dioxide 27 Anion Gap 1 L BUN 16 Creatinine 0.80 Estim Creat Clear Calc 59 Estimated GFR > 60 Glucose 87 POC Capillary Glucose 139 H 107 H Calcium 8.4 Phosphorus 3.0 Total Bilirubin 1.1 AST 42 H ALT 23 Alkaline Phosphatase 87 Total Protein 6.0 L Albumin 3.3 L Discharge Plan Discharge Attending physician on discharge: Do Arellano Consulting providers: Zachary Todd Discharging Clinician: Do Arellano Anticipated Discharge Date/Time: 05/20/23 09:24 Patient Disposition: Home, Self-Care Activity: as tolerated Diet: as tolerated and regular Patient Instructions: Antibiotic Form, How to Stop Smoking (DC), Cigarette Smoking and Your Health (GEN) Stand Alone Forms: General Discharge Information Follow-up/Referrals: Salas Coles DO [Primary Care Provider] - 2 Weeks Discharge Medications: New ciprofloxacin HCl [Cipro] 500 mg tablet 500 mg PO Q12H Qty: 6 0RF metronidazole 500 mg tablet 500 mg PO Q8H 3 Days Qty: 9 0RF Continued clonazepam 0.5 mg tablet 0.5 mg PO TID bupropion HCl [Wellbutrin XL] 150 mg tablet extended release 24 hr 150 mg PO BID pantoprazole 40 mg tab
[2023-05-20] MEDS: HYDROcodone/acetaminophen (*CRX) 5-325 MG TABLET 1 TAB PO (10:34)
== END 2023-05-20 11:35 | disposition home or self-care (01) ==
LOC: ANHED 07:55 → ANH2MED 16:47
PROVIDERS: Family Medicine; Internal Medicine Gastroenterology; Student in an Organized Health Care Education/Training Program; Admitting Provider Internal Medicine; Emergency Provider Emergency Medicine; PCP Internal Medicine; Visit Provider Internal Medicine
DX: K52.9 Noninfective gastroenteritis and colitis, unspecified (principal); E87.8 Other disorders of electrolyte and fluid balance, not elsewhere classified; E16.2 Hypoglycemia, unspecified; Q63.2 Ectopic kidney; I10 Essential (primary) hypertension; R74.8 Abnormal levels of other serum enzymes; F90.9 Attention-deficit hyperactivity disorder, unspecified type; M54.16 Radiculopathy, lumbar region; F41.9 Anxiety disorder, unspecified; Z20.822 Contact with and (suspected) exposure to COVID-19; E83.39 Other disorders of phosphorus metabolism; F32.9 Major depressive disorder, single episode, unspecified; J44.9 Chronic obstructive pulmonary disease, unspecified; K21.9 Gastro-esophageal reflux disease without esophagitis; F43.10 Post-traumatic stress disorder, unspecified; F17.210 Nicotine dependence, cigarettes, uncomplicated; Z71.6 Tobacco abuse counseling; F12.90 Cannabis use, unspecified, uncomplicated; Z79.899 Other long term (current) drug therapy
CPT/HCPCS: 36415; 74177; 80053; 80074; 82948; 83036; 83690; 83735; 84100; 85025; 87637; 93005; 96361; 96365; 96366; 96372; 96374; 96375; 96376; 99285; A9270; C9113; G0378; J0500; J0744; J1200; J2060; J2270; J2405; J2550; J3360; J7030; J7040; J7050; J7120; Q9967

== ENCOUNTER 2023-10-28 14:56 | Outpatient (NON) | payer MEDICARE, SELFPAY ==
[2023-10-28 20:17] LABS: Add Urine Microscopic? YES; Appearance Urine Clear (Clear); Bacteria Urine None Seen /hpf; Bilirubin Urine Negative (Negative); Blood Urine Negative (Negative); Color Urine Yellow (Yellow); Glucose Urine UA Negative (Negative); Ketones Urine Negative (Negative); Leukocyte Esterase Ur 1+ LEU/UL (Negative); Need Manual Microscopic Reviewed; Nitrate Urine Negative (Negative); Non Pathogenic Casts 0-2; Protein Urine Negative (Negative); RBC Urine 0-2 /hpf (0-2); Specific Grav Ur 1.003 (1.001-1.035); Squamous Epithelial Cell Urine Occasional /hpf (Few); Urobilinogen Urine 0.2 mg/dL (<2.0)
== END 2023-10-28 14:57 | disposition home or self-care (01) ==
LOC: ANHGOSHLAB 14:57
PROVIDERS: PCP Nurse Practitioner; Visit Provider Nurse Practitioner
DX: N39.0 Urinary tract infection, site not specified (principal); R30.0 Dysuria; R35.0 Frequency of micturition
CPT/HCPCS: 81001; 87086; 87088

== ENCOUNTER 2024-10-14 13:33 | Emergency (ER) | payer MEDICARE, SELFPAY ==
[2024-10-14 13:45] VITALS: BP 153/93; PULSE 97; RESP 16; TEMP 37.1; O2SAT 98
[2024-10-14 13:54] LABS: EDUAAPPEAR Clear; EDUABILI Negative (Negative); EDUABLOOD Trace (Negative); EDUACOLOR1 Yellow; EDUAGLUCOSE Negative (Negative); EDUAKETONE Negative (Negative); EDUALEUKO 2+ (Negative); EDUANITRATE Negative (Negative); EDUAPH 6.5; EDUAPROTEIN Negative (Negative); EDUASPGRAVITY 1.005; EDUAUROBILI 0.2
--- NOTE | 2024-10-14 14:14 | ED_ITS ---
HPI - Female Genitourinary General Chief complaint: Urogenital-Female Stated complaint: UTI SYMPTOMS Time Seen by Provider: 10/14/24 13:45 Source: patient and RN notes reviewed Mode of arrival: ambulatory Limitations: no limitations History of Present Illness HPI Narrative: 64-year-old female presents Express Care complaining of urinary symptoms for proximally 3 days. Patient reports dysuria, increased urinary frequency, hesitancy, suprapubic abdominal pain and low back pain. Patient denies any fevers, body aches, chills, nausea vomiting, diarrhea, any other symptoms. Patient has been Tylenol and ibuprofen without any relief. Patient reports she has a history of IBS has been under a lot of stress lately. Related Data Home Medications ?Medication ?Instructions ?Recorded ?Confirmed ?Last Taken ?Type clonazepam 0.5 mg tablet 0.5 mg PO TID 11/25/19 07/29/24 05/16/23 History bupropion HCl 150 mg 24 hr tablet, 150 mg PO BID 10/15/21 07/29/24 05/16/23 History extended release (Wellbutrin XL) calcium carbonate (Calcium 600) 600 mg PO HS 10/31/22 07/29/24 05/15/23 History cholecalciferol (vitamin D3) 25 25 mcg PO HS 10/31/22 07/29/24 05/15/23 History mcg (1,000 unit) capsule multivitamin (Multiple Vitamins 1 tablet PO HS 10/31/22 07/29/24 05/15/23 History tablet) Allergies Allergy/AdvReac Type Severity Reaction Status Date / Time Penicillins Allergy Unknown Scratchy Verified 07/29/24 13:57 palms Review of Systems Review of Systems: CONSTITUTIONAL: Denies fever, chills, body aches, or sweats. EYES: Denies visual changes, redness, or discharge. ENT: Negative for rhinorrhea, congestion, sore throat, or otalgia. CARDIOVASCULAR: Denies chest pain, palpitations, or edema. RESPIRATORY: Negative for cough and dyspnea. GASTROINTESTINAL: Positive abdominal pain. Negative for nausea, vomiting, or diarrhea. GENITOURINARY: Positive for dysuria, hesitancy, frequency. Negative for her battery a vaginal bleeding or vaginal discharge. SKIN: Denies rash or itching. MUSCULOSKELETAL: Denies back pain, joint pain, or myalgia. NEUROLOGIC: Denies headache, numbness, or weakness. PSYCHIATRIC: Denies anxiety or depression. All other systems reviewed are negative, except as documented in HPI. [facility] Past Medical History Medical History Elevated liver enzymes Gastroenteritis RLQ abdominal tenderness Hx of adenomatous colonic polyps Abdominal pain GERD (gastroesophageal reflux disease) Belching Irritable bowel syndrome with mixed bowel habits COPD (chronic obstructive pulmonary disease) DDD (degenerative disc disease) PTSD (post-traumatic stress disorder) Anxiety and depression Ruptured appendix Hypertension History of ectopic Surgical History Surgical History Hx of bilateral breast reduction surgery History of hysterectomy History of abdominoplasty History of section x 2 Family History Family History Mother Family history of malignant neoplasm of breast in first degree relative Father Mesothelioma Sibling No problems noted. Legal Guardian No problems noted. Grandparent DVT (deep venous thrombosis) Social History Social History Years smoked: 20 Smoking status: Current some day smoker Tobacco type: cigarettes Smoking end date: 03/03/19 Alcohol intake: never Substance use: current Substance use type: marijuana Other substance usage details: Occasional Do You Feel Safe in your Home?: Yes Lack of Transportation: No Lack of Food: Never True Current Housing: I Have Housing Concerned About Future Housing: No Difficulty Paying Gas/Electric Bills: YES Difficulty Paying for Meds: YES Currently Unemployed: No Education: Associate Degree Difficulty w/ Childcare or Family Care: No Gender identity (if verbalized by the patient): Female Spiritual care concerns: No Comments At the time of my signature, I reviewed and agree with the nursing past medical, surgical, social, and family history. There is no relevant family history pertinent to the patient complaint. Exam Narrative: GENERAL: This is a well-nourished, well-developed adult, in no apparent distress. They are non ill-appearing, nontoxic appearing. HEAD: normocephalic, atraumatic. EYES: Sclera clear/white. Vision is grossly intact. EARS: External ears normal, Hearing grossly intact. NOSE: External nose normal THROAT: Mucous membranes moist, NECK: Neck supple, CARDIOVASCULAR: Regular rate and rhythm without murmurs, gallops, or rubs. RESPIRATORY: Clear to auscultation. Breath sounds equal bilaterally. No wheezes, rales, or rhonchi. GASTROINTESTINAL: Abdomen soft, mild suprapubic tenderness, nondistended. Bowel sounds are active. No hepato-splenomegaly, or palpable masses. No guarding or rigidity. No rebound tenderness. SKIN: warm, Dry, intact with no suspicious lesions or rash, good texture and turgor. NEURO: awake, alert, and oriented to person, place and time. There were no obvious focal neurologic abnormalities. EXTREMITIES: No joint tenderness, effusion, or edema noted. BACK: Nontender without deformity. No CVA tenderness. Course Course Emergency Course: Portions of this record may have been created with voice recognition software Level of Care: Express Care Visit Vital Signs Vital signs: Vital Signs Temperature 98.7 F 10/14/24 13:45 Pulse Rate 97 10/14/24 13:45 Respiratory Rate 16 10/14/24 13:45 Blood Pressure 153/93 H 10/14/24 13:45 Pulse Oximetry 98 10/14/24 13:45 Temperature 98.7 F 10/14/24 13:45 Pulse Rate 97 10/14/24 13:45 Respiratory Rate 16 10/14/24 13:45 Blood Pressure 153/93 H 10/14/24 13:45 Pulse Oximetry 98 10/14/24 13:45 MDM - Female Genitourinary MDM Narrative Medical decision making narrative: Urine dipstick shows evidence of urinary tract infection. Urine culture pending. Symptoms consistent with urinary tract infection. Will treat with Bactrim. Discussed physical exam findings. Advised supportive measures and signs/symptoms to go to the ER. Pt is appropriate for outpt treatment and f/u. Differential Diagnosis Differential diagnosis: Likely urinary tract infection, cystitis and other (Pyelonephritis) Lab Data Attestation: I reviewed the patient's lab results. Labs: Lab Results 10/14/24 Range/Units 13:52 POC Urine Color Yellow POC Urine Clarity Clear POC Urine pH 6.5 POC Ur Specif [place] 1.005 POC Urine Protein Negative (Negative) POC Ur Glucose (UA) Negative (Negative) POC Urine Ketones Negative (Negative) POC Urine Blood Trace (Negative) POC Urine Nitrite Negative (Negative) POC Urine Bilirubin Negative (Negative) POC Urine Urobilinogen 0.2 POC U Leukocyte Esteras 2+ (Negative) Discharge Plan Discharge Clinical Impression: Urinary tract infection Qualifiers: Urinary tract infection type: site unspecified Hematuria presence: with hematuria Qualified Code(s): N39.0 - Urinary tract infection, site not specified Patient Disposition: Home Condition: Stable Instructions: Antibiotic Form, Urinary Tract Infection in Women (ED) Additional Instructions: Take the antibiotic as prescribed The urine will be sent of for a culture to identify what type of bacteria is causing your infection. If the culture shows that the antibiotic will not get rid of your infection, you will be notified and a new antibiotic will be called in for you. Increase water intake you will need to follow up with your PCP 3-5 days. Go to the ER for any worsening symptoms, abdominal pain, fevers, nausea, vomiting, or any other concerns Patient Language: [place] Prescriptions: New sulfamethoxazole-trimethoprim [Bactrim DS] 800-160 mg tablet 1 tablet PO Q12H 5 Days Qty: 10 0RF No Action clonazepam 0.5 mg tablet 0.5 mg PO TID bupropion HCl [Wellbutrin XL] 150 mg tablet extended release 24 hr 150 mg PO BID multivitamin [Multiple Vitamins] Tablet 1 tablet PO HS calcium carbonate [Calcium 600] 600 mg calcium (1,500 mg) tablet 600 mg PO HS cholecalciferol (vitamin D3) 25 mcg (1,000 unit) capsule 25 mcg PO HS amitriptyline 10 mg tablet 20 mg PO QHS 90 Days Qty: 180 3RF pantoprazole 40 mg tablet,delayed release (DR/EC) See Rx Instructions .ROUTE .COMPLEX Qty: 90 3RF Dose Instruction: TAKE 1 TABLET BY MOUTH EVERY DAY IN THE MORNING Rx Instructions: TAKE 1 TABLET BY MOUTH EVERY DAY IN THE MORNING clonidine HCl 0.2 mg tablet 0.2 mg PO DAILY Qty: 30 0RF Rx Instructions: Take 1 tablet in the AM clonidine HCl 0.3 mg tablet 0.3 mg PO DAILY Qty: 30 5RF Rx Instructions: Take 1 tablet every PM. Follow-up/Referrals: Leeann Kirby [employer] [Primary Care Provider] - Time of Disposition: 13:53
== END 2024-10-14 14:09 | disposition home or self-care (01) ==
PROVIDERS: PCP Nurse Practitioner
DX: N39.0 Urinary tract infection, site not specified (principal); Z87.891 Personal history of nicotine dependence; F12.90 Cannabis use, unspecified, uncomplicated; K21.9 Gastro-esophageal reflux disease without esophagitis; J44.9 Chronic obstructive pulmonary disease, unspecified; I10 Essential (primary) hypertension; F41.9 Anxiety disorder, unspecified; F32.A Depression, unspecified
CPT/HCPCS: 81003; 87086; 99213; G0463

== ENCOUNTER 2025-01-17 06:12 | Emergency (ER) | payer MEDICARE, SELFPAY ==
--- NOTE | ~2025-01-17 | XR_ITS ---
Examination: XR shoulder RT min 2V, XR humerus RT Clinical History: fall last night, pain Comparison: None Technique: 2 views right shoulder, 2 views right humerus Findings/impression: Right shoulder: 1. Comminuted fracture humeral head. Right humerus: 1. Comminuted fracture humeral head. 2. Distal humerus intact. Reviewed, dictated and finalized at location R. TRUCTION ANALYST
[2025-01-17 06:17] VITALS: BP 155/88; PULSE 121; RESP 20; TEMP 36.3; O2SAT 96
[2025-01-17 07:24] VITALS: BP 140/89; PULSE 106; RESP 18; O2SAT 94
--- NOTE | 2025-01-17 07:54 | ED.GENADULT ---
HPI - General Adult General Chief complaint: Extremity Injury, Upper Stated complaint: R shoulder pain, fall yesterday after drinking Time Seen by Provider: 01/17/25 07:38 History of Present Illness HPI narrative: 64-year-old female presents to the emergency department for evaluation after having a ground level fall injuring her right shoulder. Patient does admit to drinking alcohol last night and had right shoulder injury. Patient remembers the fall denies striking head denies loss consciousness. Patient does have history of anxiety and is very anxious at time of evaluation. Patient denies any other pain or injury. Patient does have history of COPD, degenerative disc disease, GERD, hypertension. Patient is not on any blood thinners. Related Data Home Medications ?Medication ?Instructions ?Recorded ?Confirmed ?Last Taken ?Type clonazepam 0.5 mg tablet 0.5 mg PO TID 11/25/19 01/17/25 05/16/23 History bupropion HCl 150 mg 24 hr tablet, 150 mg PO BID 10/15/21 01/17/25 05/16/23 History extended release (Wellbutrin XL) calcium carbonate (Calcium 600) 600 mg PO HS 10/31/22 01/17/25 05/15/23 History cholecalciferol (vitamin D3) 25 25 mcg PO HS 10/31/22 01/17/25 05/15/23 History mcg (1,000 unit) capsule multivitamin (Multiple Vitamins 1 tablet PO HS 10/31/22 01/17/25 05/15/23 History tablet) Allergies Allergy/AdvReac Type Severity Reaction Status Date / Time Penicillins Allergy Unknown Scratchy Verified 01/17/25 14:08 palms/THROAT SWELLING Review of Systems Review of Systems: All systems reviewed & are unremarkable except as noted in HPI and below PMFSH Past Medical History Medical History Elevated liver enzymes Gastroenteritis RLQ abdominal tenderness Hx of adenomatous colonic polyps Abdominal pain GERD (gastroesophageal reflux disease) Belching Irritable bowel syndrome with mixed bowel habits COPD (chronic obstructive pulmonary disease) DDD (degenerative disc disease) PTSD (post-traumatic stress disorder) Anxiety and depression Ruptured appendix Hypertension History of ectopic Surgical History Surgical History Hx of bilateral breast reduction surgery History of hysterectomy History of abdominoplasty History of section x 2 Family History Family History Mother Family history of malignant neoplasm of breast in first degree relative Father Mesothelioma Sibling No problems noted. Legal Guardian No problems noted. Grandparent DVT (deep venous thrombosis) Social History Social History Smoking packs per day: 0.5 Smoking cigarettes per day: 10.0 Years smoked: 20 Smoking pack-years: 10.00 Smoking status: Former smoker Tobacco type: cigarettes Smoking end date: 03/03/19 Alcohol intake: current Drinks per week: 1 Substance use: current Substance use type: marijuana Other substance usage details: Occasional Last use: 01/14/25 Do You Feel Safe in your Home?: Yes Lack of Transportation: No Lack of Food: Never True Current Housing: I Have Housing Concerned About Future Housing: No Difficulty Paying Gas/Electric Bills: YES Difficulty Paying for Meds: YES Currently Unemployed: No Education: Associate Degree Difficulty w/ Childcare or Family Care: No Living arrangements: alone Gender identity (if verbalized by the patient): Female Spiritual care concerns: No Exam Narrative: APPEARANCE: Anxious and uncomfortable appearing HEAD: normocephalic, atraumatic. EYES: PERRLA/EOMI, conjunctivae clear. NOSE: Normal no drainage EARS:TMS clear with good light reflex. THROAT: Pharynx clear, no exudate. NECK: Supple. No adenopathy, no masses. RESPIRATORY: Airway patent, respirations nonlabored. Clear to auscultation bilaterally, no rales, rhonchi, wheezing. CARDIOVASCULAR: Regular rate and rhythm without murmurs rubs or gallops. ABDOMINAL: Soft, nontender, nondistended, normal bowel sounds MUSCULOSKELETAL: Right shoulder pain, neurovascularly intact NEURO: Alert. Cranial nerves II through XII intact. Good gait. Good coordination SKIN: Warm, dry. Normal Color Course Vital Signs Vital signs: Vital Signs Temperature 97.4 F L 01/17/25 06:17 Pulse Rate 121 H 01/17/25 06:17 Respiratory Rate 20 01/17/25 06:17 Blood Pressure 155/88 H 01/17/25 06:17 Pulse Oximetry 96 01/17/25 06:17 Oxygen Delivery Room Air 01/17/25 06:17 Temperature 97.4 F L 01/17/25 06:17 Pulse Rate 106 H 01/17/25 07:24 Respiratory Rate 18 01/17/25 07:24 Blood Pressure 140/89 01/17/25 07:24 Pulse Oximetry 94 01/17/25 07:24 Oxygen Delivery Room Air 01/17/25 06:17 Medical Decision Making MDM Narrative Medical decision making narrative: 64-year-old female presenting to the emergency department for evaluation for right shoulder injury. X-ray does show a comminuted humeral head fracture. I had discussed the case with orthopedics and they were comfortable with the plan for shoulder immobilizer, pain medications for home and close outpatient follow-up. Patient was provided follow-up with Dr. Hamilton. Follow-up questions concerns were addressed patient was comfortable with plan for discharge and close follow-up. Differential Diagnosis Differential Diagnosis: Humerus fracture, shoulder dislocation, shoulder strain AC joint separation Vital Signs Vital Signs: Vital Signs Temperature 97.4 F L 01/17/25 06:17 Pulse Rate 121 H 01/17/25 06:17 Respiratory Rate 20 01/17/25 06:17 Blood Pressure 155/88 H 01/17/25 06:17 Pulse Oximetry 96 01/17/25 06:17 Oxygen Delivery Room Air 01/17/25 06:17 Temperature 97.4 F L 01/17/25 06:17 Pulse Rate 106 H 01/17/25 07:24 Respiratory Rate 18 01/17/25 07:24 Blood Pressure 140/89 01/17/25 07:24 Pulse Oximetry 94 01/17/25 07:24 Oxygen Delivery Room Air 01/17/25 06:17 Imaging Data Attestation: I personally reviewed and interpreted this imaging study as follows: My impression: X-ray: Humeral head fracture Radiologist's impression: Right shoulder: 1. Comminuted fracture humeral head. Right humerus: 1. Comminuted fracture humeral head. 2. Distal humerus intact. Discharge Plan Discharge Clinical Impression: Fracture, humerus, head Patient Disposition: Home Condition: Stable Instructions: Antibiotic Form, Arm Fracture in Adults (ED), Shoulder Immobilizer (ED) Additional Instructions: Ibuprofen for pain control, [place] as needed for additional pain control. Cyclobenzaprine as needed for muscle spasm. Shoulder immobilizer as directed. Have close follow-up with Orthopedics. If you have any worsening symptoms then please call or return to the emergency department. Patient Language: Somali Prescriptions: New cyclobenzaprine 10 mg tablet 10 mg PO BID PRN (Reason: muscle spasm) Qty: 14 0RF hydrocodone-acetaminophen 5-325 mg tablet 1 tablet PO Q12H PRN (Reason: pain) Qty: 14 0RF No Action sulfamethoxazole-trimethoprim [Bactrim DS] 800-160 mg tablet 1 tablet PO Q12H 5 Days Qty: 10 0RF clonazepam 0.5 mg tablet 0.5 mg PO TID bupropion HCl [Wellbutrin XL] 150 mg tablet extended release 24 hr 150 mg PO BID multivitamin [Multiple Vitamins] Tablet 1 tablet PO HS calcium carbonate [Calcium 600] 600 mg calcium (1,500 mg) tablet 600 mg PO HS cholecalciferol (vitamin D3) 25 mcg (1,000 unit) capsule 25 mcg PO HS pantoprazole 40 mg tablet,delayed release (DR/EC) See Rx Instructions .ROUTE .COMPLEX Qty: 90 3RF Dose Instruction: TAKE 1 TABLET BY MOUTH EVERY DAY IN THE MORNING Rx Instructions: TAKE 1 TABLET BY MOUTH EVERY DAY IN THE MORNING clonidine HCl 0.2 mg tablet 0.2 mg PO DAILY Qty: 30 0RF Rx Instructions: Take 1 tablet in the AM clonidine HCl 0.3 mg tablet 0.3 mg PO DAILY Qty: 30 5RF Rx Instructions: Take 1 tablet every PM. amitriptyline 10 mg tablet See Rx Instructions .ROUTE .COMPLEX Qty: 180 0RF Dose Instruction: 20 MG ORALLY EVERY DAY AT BEDTIME FOR 90 DAYS Rx Instructions: 20 MG ORALLY EVERY DAY AT BEDTIME FOR 90 DAYS Follow-up/Referrals: Keon Hamilton MD [Physician, Orthopedics] Leeann Kirby APRN [Advanced Practice Nurse, Internal Medicine]
[2025-01-17] MEDS: HYDROcodone/acetaminophen (*CRX) 10-325 MG TABLET 1 TAB PO (07:57)
== END 2025-01-17 08:31 | disposition home or self-care (01) ==
LOC: ANHED 08:19
PROVIDERS: Emergency Provider Emergency Medicine; PCP Internal Medicine
DX: S42.291A Other displaced fracture of upper end of right humerus, initial encounter for closed fracture (principal); I10 Essential (primary) hypertension; J44.9 Chronic obstructive pulmonary disease, unspecified; K21.9 Gastro-esophageal reflux disease without esophagitis; K58.2 Mixed irritable bowel syndrome; F43.10 Post-traumatic stress disorder, unspecified; F41.9 Anxiety disorder, unspecified; F32.A Depression, unspecified; Z87.891 Personal history of nicotine dependence; Z90.710 Acquired absence of both cervix and uterus; W18.30XA Fall on same level, unspecified, initial encounter
CPT/HCPCS: 73030; 73060; 99284; A9270

== ENCOUNTER 2025-01-18 10:40 | Outpatient (CLI) | payer MEDICARE, SELFPAY ==
--- NOTE | 2025-01-18 10:50 | ECG_ITS ---
Test Date: 2025-01-18 11:19:29 Measurements Intervals [place] Rate: 118 P: 152 AK: 142 QRS: 144 QRSD: 73 T: 151 QT: 309 QTc: 434 Interpretive Statements ECTOPIC ATRIAL TACHYCARDIA POSSIBLE LEFT ATRIAL ENLARGEMENT [-0.1mV P WAVE IN V1/V2] POSSIBLE RIGHT VENTRICULAR HYPERTROPHY [SOME/ALL OF: PROMINENT R IN V1, LATE TRANSITION, RAD, BATOOL, SSS] ABNORMAL ECG No previous ECG available for comparison Electronically Signed On 01-18-2025 15:55:09 [employer] by Mike Diehl M.D.
[2025-01-18 12:10] LABS: Hematocrit 41.3 % (37.0-47.0); Hemoglobin 13.6 g/dL (12.0-15.0); Immature Granulocyte Percent A 0.5 % (0-0.5); Lymphocytes Absolute Auto 2.82 K/mm3 (0.9-3.2); Mean Corpuscular HGB Conc 32.9 g/dl (32-36); Mean Corpuscular Hemoglobin 29.3 pg (26-34); Mean Corpuscular Volume 89.0 fl (80-100); Nucleated Red Blood Cells Absolute Auto 0.000 K/mm3 (0.0-0.012); Nucleated Red Blood Cells Perc 0.0 % (0.0-0.2); Platelet Count Result 324 k/mm3 (150-375); Red Blood Count 4.64 M/mm3 (4.2-5.4); White Blood Count 14.7 K/mm3 (4.5-10.0)
[2025-01-18 15:23] LABS: MRSA (PCR) DETECTED (NOT DETECTE)
== END 2025-01-18 10:41 | disposition home or self-care (01) ==
LOC: ANHSURGERY 10:43
PROVIDERS: PCP Internal Medicine; Visit Provider Orthopaedic Surgery
DX: Z01.818 Encounter for other preprocedural examination (principal); S42.293A Other displaced fracture of upper end of unspecified humerus, initial encounter for closed fracture; X58.XXXA Exposure to other specified factors, initial encounter; R94.31 Abnormal electrocardiogram [ECG] [EKG]
CPT/HCPCS: 36415; 85025; 86850; 86900; 86901; 87641; 93005

== ENCOUNTER 2025-01-21 03:36 | Day surgery (SDC) | payer MEDICARE, SELFPAY ==
--- NOTE | 2025-01-17 14:08 | PC.NURSE ---
[facility] has started construction of its new state of the art ER which will open Spring 2026. With this, we anticipate parking may be a challenge for some our surgical patients and families. Parking spaces are limited but are available for all Surgical, obstetrics, and ER patients sharing this lot. If you arrive and find you are having a hard time finding a parking space, please note that we understand the challenges, please drive around the hospital and park near Hospital Entrance 1. When you enter this entrance, you can ask a volunteer to direct or take you back to the surgical waiting area to check in. We appreciate everyone?s understanding of these expected challenges while we build for your future. Report to the Outpatient Waiting Room, entrance under the green pavilion located off [address], at time __11 AM on date __01/21/25 . Planned Procedure Time: __1 PM .? Time changes happen often and if your time is changed the preop area will call you the afternoon before. - You and your visitor will be asked to self-screen and do not enter if you have any COVID symptoms. Please call surgeon if you need to reschedule. - A mask is optional within the hospital at this time. Patients may have clear liquids (water, carbonated beverages, clear teas, apple juice) until 3 hours prior to surgery( 10 AM) with a maximum of 20 ounces. - No food from midnight until time of surgery and no smoking, or chewing tobacco (or any form of nicotine). No chewing gum, candy or mints. - Take only the following medications with a SIP of water on the morning of surgery: ___BUPROPION,CLONAZEPAM,CLONIDINE DO NOT STOP ANY OF YOUR OTHER PRESCRIPTION MEDICATIONS PRIOR TO SURGERY EXCEPT THE FOLLOWING Hold all vitamins and supplements for 3 days per anesthesiologist.LAST DOSE01/17/25 Medications to discontinue per physician NONE Please no make-up, nail spanish, hairspray, perfume, deodorant, or body powder the day of surgery.? No jewelry (including any body piercings) or valuables the day of surgery, leave them at home.? Please take a shower or bath the night before, or the morning of, surgery with an antibacterial soap.? Wear comfortable, loose fitting clothing.? Children are encouraged to wear pajamas. - Jewelry must be removed prior to entering the operating room.? Rings and piercings that are not removed may be cut off. - The hospital will not accept responsibility for valuables.? - Please leave all valuables, including medications, at home the day of surgery. If you are going home after surgery, a licensed service parts driver must drive you home.? - NO public transportation without another adult if you receive anesthesia. - We recommend that an adult stay with you for 24 hours following discharge. - We also recommend that you do not drive, make important decision, drink alcoholic beverages, or take any drugs that were not prescribed by your health care provider for at least 24 hours after your discharge time. For Pediatric surgeries, we recommend two adults accompany the child home. Follow any additional instructions given to you from your surgeon. Telephone instructions given to ___PATIENT and asked if any additional questions and then verbalized understanding. Patient advised to call surgeon office or pre surgery nurse liaison [phone] if any additional questions.
[2025-01-17 14:34] VITALS: BMI 22.7
[2025-01-21] VITALS (13 sets, daily range): BP systolic 111–161; BP diastolic 59–80; PULSE 94–111; RESP 16–25; TEMP 36.3–37.7; O2SAT 93–100
--- NOTE | ~2025-01-21 | XR_ITS ---
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 COMPARISON: No comparisons available. Findings: No acute fracture or malalignment. Arthroplasty intact Soft tissues unremarkable. Impression: No acute fracture or malalignment. Reviewed, dictated and finalized at location P. ATORY WORKER Impression: No acute fracture or malalignment.
--- OUTSIDE RECORDS SUMMARY | 2025-01-21 03:40 | XMS_ITS | Patient Health Record ---
Author Organization [facility] Address [address] [place] [address] Care Team Providers Care Baking Powder Mixer Name Role Phone Jorge Capone Primary Care Provider [phone] Talya Osman Unavailable [phone] Neris Barba Unavailable [phone] Allergies Allergen (clinical drug ingredient) Drug/Non Drug Allergy documented on EMR Reaction Allergy Type Onset Date Status PENICILLIN Unknown Drug Allergy Active Reason For Referral No Information Medications Medication SIG (Take, Route, Frequency, Duration) Notes Start Date End Date Status Ambien 10 MG 1 tablet Orally at bedtime as needed; Duration: 30 days 12/06/2016 Active KlonoPIN 1 MG 1 tablet Orally thre e times daily as needed; Duration: 30 days 01/03/2017 Active Gabapentin 300 MG Take 1 capsule twice per day and 3 tablets at bed time Orally twice a day; Duration: 30 days 08/16/2016 Active Ambien 10 MG 1 tablet Orally at bedtime as needed; Duration: 30 days 01/03/2017 Active Zantac 150 Maximum Strength 150 MG 1 tablet prn Orally twice a day 09/27/2015 Active BL Blood Pressure Monitor - as directed 07/23/2016 Active Adderall 20 MG 1 tablet Orally twic e a day; Duration: 30 days 01/03/2017 Active QUEtiapine Fumarate 100 MG 1 tablet Orally at bedtime; Duration: 30 days 07/02/2016 Not-Taking Immunizations Vaccine Route Administration Date Status Comme nts COVID-19 Moderna 1ST IM Intramuscular 05/11/2020 Administered EUA given. Natalie ent tolerated well. COVID-19 Moderna 2nd IM Intramuscular 06/08/2020 Administered EUA date 0. Screening reviewed and consent signed. Patient tolerated well. Problems Problem Type SNOMED Code ICD Code Onset Dates Problem Status W/U Status Risk Notes Problem Generalized anxiety disorder (52713372) Generalized anxiety disorder (F41.1) Active confirmed Problem Posttraumatic stress disorder (69221816) PTSD (post-traumatic stress disorder) (F43.10) Active confirmed Problem Anxiety (33774488) Anxiety (F41.9) Active confirmed Problem Attention deficit disorder (70946113) ADD (attention deficit disorder) (F90.0) Active confirmed Problem Attention deficit hyperactivity disorder (736778401) ADHD (attention deficit hyperactivity disorder), predominantly hyperactive impulsive type (F90.1) Active confirmed Problem Depressive disorder (disorder) (97008683) Depression, unspecified depression type (F32.9) Active confirmed Problem Recurrent major depression in remission (86458208) Recurrent major depressive disorder, in partial remission (F33.41) Active confirmed Problem Attention deficit disorder (40149178) ADD (attention deficit disorder) (F98.8) Active confirmed Plan Of Treatment Pending Test Test Name Order Date Xray : Hip, left 10/29/2016 Insurance Providers Payer Name Payer Address Payer Phone Subscriber Number Group Number Insured Name Patient Relationship to Insured Coverage Start Date Coverage End Date MEDICARE PART A [address] [place] [phone] [id number] Juana Perkins Self - patient is the insured 6 MEDICAID [address] [place] [address] [id number] Juana Perkins Self - patient is the insured 6 Medical (General) History Medical History History ICD Code elevated blood pressure Surgical History Surgery Date(Month/Year) 2 sections hysterectomy ectopic appendectomy multiple abdominal surgeries
--- OUTSIDE RECORDS SUMMARY | 2025-01-21 03:40 | XMS_ITS | Patient Health Record ---
Author Organization [facility] [employer] [facility] Address [address] [place] [address] Care Team Providers Care Science Tutor Name Role Phone Salas Coles DO Primary Care Provider Abner Pittman Unavailable [phone] Allergies Allergen (clinical drug ingredient) Drug/Non Drug Allergy documented on EMR Reaction Allergy Type Onset Date Status Substance with penicillin structure and antibacterial mechanism of action (substance) Penicillins Unknown Drug Allergy 06/18/2023 Active Results Component Value Reference Range Notes UDT Reviewed date:03/29/2024 04:00:50 PM Interpretation: Performing Lab: Notes/Report: Amphetamine (AMP) N 0 - 1000 ng/ml Buprenorphine (BUP) N 0 - 10 ng/ml Oxazepam (BZO) P 0 - 300 ng/ml Cocaine (LEELA) N 0 - 300 ng/ml Methamphetamine (mAMP) N 0 - 300 ng/ml Methylenedioxymethamphetamine (MDMA) N 0 - 500 ng/ml Morphine (MOP) N 0 - 25 ng/ml Methadone (MTD) N 0 - 300 ng/ml Oxycodone (OXY) N 0 - 300 ng/ml THC P 0 - 50 ng/ml x N 0 - 1000 ng/ml x N 0 - 1000 ng/ml x N 0 - 300 ng/ml x N 0 - 300 ng/ml x N 0 - 300 ng/ml Reason For Referral No Information Medications Medication SIG (Take, Route, Frequency, Duration) Notes Start Date End Date Status cloNIDine HCl 0.2 MG Tablet TAKE 1 TABLETinTHE MORNING Orally Once a day; Duration: 90 days Active Pantoprazole Sodium 40 MG Tablet Delayed Release Oral 06/18/2023 Not-T aking buPROPion HCl ER (Smoking Det) 150 MG Tablet Extended Release 12 Hour TAKE 1 TABLET BY MOUTH TWICE A DAY; Duration: 90 Not-Taking Dicyclomine HCl 20 MG Tablet Oral 06/18/2023 Not-Taking cloNIDine HCl 0.3 MG Tablet 1 tablet in the evening Orally Once a day Active clonazePAM 0.5 MG Tablet 1 tablet Oral t hree times a day; Duration: 30 days 12/29/2024 Active Amitriptyline HCl 10 MG Tablet Oral 06/18/2023 Active buPROPion HCl ER (Smoking Det) 150 MG Tablet Extended Release 12 Hour 1 tablet Oral twice a day; Duration: 90 days Active Immunizations Vaccine Route Administration Date Status Comme nts Tdap Unknown 1977 Administered Pfizer Biontech Covid-19 Vac cine 2nd dose Unknown 01/24/2021 Administered Pfizer Biontech Covid-19 Vac cine 2nd dose Unknown 12/25/2021 Administered Novel [id number], preservative free Unknown 01/01/2020 Administered Novel [id number], preservative free Unknown 01/24/2021 Administered Novel [id number], preservative free Unknown 12/25/2021 Administered Moderna Covid-19 Vaccine 1st dose Unknown 05/11/2020 Ad ministered Influenza virus vaccine, quadrivalent (IIV4), split virus, 0.25 mL dosage Unknown 11/01/2017 Administered Influenza virus vaccine, quadrivalent (IIV4), split virus, 0.25 mL dosage Unknown 12/01/2018 Administered Influenza virus vaccine, quadrivalent (IIV4), split virus, 0.25 mL dosage Unknown 12/12/2018 Administered Social History Tobacco Use: Social History Observation Description Date Details (start date - stop date) Current some da y smoker NA - NA Sex Assigned At : Social History Observation Description Sex Assigned At Female Social History Miscellaneous: Social Info Question Answer Notes Advance Care Planning Are you your own decision-maker Yes Do you have Power of Case Filler for Health or [facility] francisca? No Tobacco Use: Social Info Question Answer Notes Tobacco Control (Standard) Tobacco use: Current some day smoker Additional Details Category Social Info Options Details Migrated Social History Migrated Social History Alcohol Intake: Occasional 12/26/2017,Tobacco Years: Former smoker 06/26/2020,Smoking Status: 0 02/13/2023 Problems Problem Type SNOMED Code ICD Code Onset Dates Problem Status W/U Status Risk Notes Problem Tobacco user (822624451) Nicotine dependence, unspecified, uncomplicated (F17.200) 06/18/19 Active confirmed Problem Generalized anxiety disorder (41017536) Generalized anxiety disorder (F41.1) 06/18/19 Active confirmed Problem Posttraumatic stress disorder (40421809) Post-traumatic stress disorder, chronic (F43.12) 06/18/19 Active confirmed Problem Attention deficit hyperactivity disorder, predominantly inattentive type (14009241) Attention-deficit hyperactivity disorder, predominantly inattentive type (F90.0) 06/18/19 Active confirmed Vital Signs Heart Rate 100 /min 12/29/2024 Height-cm 170.18 cm 12/29/2024 Blood pressure diastolic 92 mm Hg 12/29/2024 Weight-kg 65.77 kg 12/29/2024 Height 67.00 in 12/29/2024 Blood pressure systolic 142 mm Hg 12/29/2024 Weight 145 lbs 12/29/2024 BMI 22.71 kg/m2 12/29/2024 Encounters Encounter Location Date Provider Diagnosis [facility] [place] [id number] [facility] [address] [facility] [address] [place] [address] 03/29/2024 Abner Georges Generalized anxiety disorder F41.1 ; Attention-deficit hyperactivity disorder, predominantly inattentive type F90.0 ; Nicotine dependence, unspecified, uncomplicated F17.200 and Post-traumatic stress disorder, chronic F43.12 [facility] [address] [facility] [address] [place] [address] 06/21/2024 Abner Georges Attention-deficit hyperactivity disorder, predominantly inattentive type F90.0 ; Generalized anxiety disorder F41.1 ; Post-traumatic stress disorder, chronic F43.12 ; Encounter for screening for depression Z13.31 ; Encounter for screening for cardiovascular disorders Z13.6 ; Dietary counseling and surveillance Z71.3 ; Nicotine use Z72.0 and Nicotine dependence, unspecified, uncomplicated F17.200 [facility] [employer] [facility] [employer] [facility] [address] [place] [address] 09/30/2024 Abner Georges Attention-deficit hyperactivity disorder, predominantly inattentive type F90.0 ; Generalized anxiety disorder F41.1 ; Post-traumatic stress disorder, chronic F43.12 and Nicotine use Z72.0 [facility] [address] [place] [address] 12/29/2024 Abner Georges Generalized anxiety disorder F41.1 ; Attention-deficit hyperactivity disorder, predominantly inattentive type F90.0 ; Post-traumatic stress disorder, chronic F43.12 and Nicotine use Z72.0 [facility] [address] [place] [address] 01/27/2024 Abner Georges Generalized anxiety disorder F41.1 Assessments Encounter Date Diagnosis (ICD Code) Assessment Notes Treatment Notes Treatment Clinical Notes Section Notes 01/27/2024 Generalized anxiety disorder (ICD-10 - F41.1) 03/29/2024 Generalized anxiety disorder (ICD-10 - F41.1) on amitriptyline 20mg by pcp 06/21/2024 Attention-deficit hyperactivity disorder, predominantly inattentive type (ICD-10 - F90.0) on clonidine 0.2mg bid by pcp 09/30/2024 Generalized anxiety disorder (ICD-10 - F41.1) on amitriptyline 20mg by pcp 09/30/2024 Attention-deficit hyperactivity disorder, predominantly inattentive type (ICD-10 - F90.0) on clonidine 0.2mg bid by pcp 12/29/2024 Generalized anxiety disorder (ICD-10 - F41.1) on amitriptyline 20mg by pcp- tapering off 12/29/2024 Attention-deficit hyperactivity disorder, predominantly inattentive type (ICD-10 - F90.0) on clonidine 0.2mg bid by pcp 12/29/2024 Post-traumatic stress disorder, chronic (ICD-10 - F43.12) supportive care 09/30/2024 Post-traumatic stress disorder, chronic (ICD-10 - F43.12) supportive care 03/29/2024 Attention-deficit hyperactivity disorder, predominantly inattentive type (ICD-10 - F90.0) on clonidine 0.2mg bid by pcp 06/21/2024 Generalized anxiety disorder (ICD-10 - F41.1) on amitriptyline 20mg by pcp 06/21/2024 Post-traumatic stress disorder, chronic (ICD-10 - F43.12) supportive care 03/29/2024 Nicotine dependence, unspecified, uncomplicated (ICD-10 - F17.200) rare cigarette use 09/30/2024 Nicotine use (ICD-10 - Z72.0) 12/29/2024 Nicotine use (ICD-10 - Z72.0) trying to quit, plans to quit by 06/21/2024 Encounter for screening for depression (ICD-10 - Z13.31) 03/29/2024 Post-traumatic stress disorder, chronic (ICD-10 - F43.12) supportive care 06/21/2024 Encounter for screening for cardiovascular disorders (ICD-10 - Z13.6) 06/21/2024 Dietary counseling and surveillance (ICD-10 - Z71.3) 06/21/2024 Nicotine use (ICD-10 - Z72.0) 06/21/2024 Nicotine dependence, unspecified, uncomplicated (ICD-10 - F17.200) rare cigarette use 03/29/2024 Other 1. Anxiety - Plan: - Continue current treatment plan with clonazepam as prescribed. - Encourage the patient to continue exploring non-pharmacologi francisca methods for managing anxiety, such as listening to the Anxiety Rx audiobook and engaging in relaxation techniques. - Consider referral to a therapist for additional support in managing anxiety and addressing potential underlying trauma. 2. Insomnia - Plan: - Encourage the patient to maintain good sleep hygiene practices and consider non-pharmacologi francisca methods for improving sleep, such as relaxation techniques and establishing a consistent sleep schedule. - Monitor the patient's occasional use of THC gummies for sleep and discuss potential alternatives if needed. 3. Family and social stressors - Plan: - Encourage the patient to maintain healthy boundaries with family members and seek support from friends and loved ones. - Consider referral to a therapist or support group to help the patient navigate challenging family dynamics and improve communication skills. 06/21/2024 Other Juana Reyes, a 64-year-old female with a history of bipolar disorder, presents with ongoing anxiety and concerns about her diagnosis. Major Depressive Disorder Assessment: Patient reports a history of bipolar disorder diagnosis but expresses uncertainty about its accuracy. Depression is stable. Plan: - Continue bupropion 150 mg PO twice daily - Monitor for mood stability and effectiveness of current medication regimen - Discuss diagnostic clarification at future appointments if needed Anxiety Assessment: Patient acknowledges ongoing anxiety issues, stating I do worry too much. I get anxious. She reports that her current medication regimen is still working pretty good for managing her anxiety symptoms. However, she also mentions persistent restlessness and fidgeting, which she wonders might be related to ADHD. Plan: - Continue clonazepam 0.5 mg PO three times daily for anxiety - Discuss potential future tapering of clonazepam, acknowledging patient's preference to maintain current regimen due to good response - Encourage ongoing use of anxiety management techniques - Monitor for side effects and efficacy of current medication regimen Medication Management Assessment: Patient reports good response to current medication regimen, including bupropion and clonazepam. She expresses a desire to maintain the current treatment plan, stating, I would hope maybe not now, since I'm doing so good in response to previous discussions about potentially tapering off clonazepam. Plan: - Continue current medication regimen: - Bupropion 150 mg PO twice daily - Clonazepam 0.5 mg PO three times daily - Provide medication refills - Schedule follow-up appointment in 3 months - Continue to monitor for side effects and efficacy of medications the note is transcribed using speech recognition software. It is a reflection of a visit with the patient. It might have some inaccuracy, including medication names and transcribing errors, though efforts have been made to correct them. 09/30/2024 Other Juana Reyes, female patient with history of anxiety, low self-esteem, and multiple psychiatric hospitalizations, presenting with ongoing anxiety symptoms and recent emotional distress related to family issues. Generalized Anxiety Disorder Assessment: Patient reports ongoing anxiety symptoms, including twitchy fingers and excessive worry. Plan: - Continue clonazepam - Continue clonidine 0.2 mg PO BID, with nighttime dose increased to 0.3 mg - Encourage ongoing stress-reduction techniques - Monitor sleep patterns and blood pressure - Follow up on emotional well-being and anxiety symptoms the note is transcribed using speech recognition software. It is a reflection of a visit with the patient. It might have some inaccuracy, including medication names and transcribing errors, though efforts have been made to correct them. 12/29/2024 Rosana Reyes presents with worsening anxiety, ongoing grief following father's , family conflicts over estate matters, and IBS symptoms that are particularly severe in the mornings. Anxiety Patient reports her anxiety has been bad. She is experiencing significant family stress related to estate disputes following her father's , with her sister pressuring her regarding property matters and creating ongoing conflict. The patient describes becoming emotional and crying rather than angry when stressed. She continues to grieve her father's . The anxiety appears to be exacerbating her IBS symptoms through the brain-gut connection. Plan: - Continue clonazepam three times daily - Follow up in 3 months IBS Patient describes IBS as the worst thing in the world with symptoms being particularly severe in the mornings, involving either constipation or diarrhea. She reports that anxiety serves as a trigger for her IBS symptoms through the brain-gut connection. Eating is a struggle due to the condition. Symptoms improve somewhat as the day progresses. Plan: - No specific plan discussed for IBS management Amitriptyline discontinuation Patient discontinued amitriptyline due to dislike of side effects. She was taking 20 mg (described as 2 little white ones) and attempted to stop one tablet but experienced withdrawal symptoms (feeling yuck). Dr. Macias advised against abrupt discontinuation due to risk of withdrawal symptoms given prolonged use. Plan: - Gradual weaning off amitriptyline as previously instructed Sleep disturbance Patient reports being restless despite clonidine treatment. Clonidine was increased by Dr. Coles's office to 0.2 mg in the morning and 0.3 mg at night, which is helping with sleep. However, she experiences vivid dreams as a side effect. Plan: - Continue current clonidine regimen Depression Patient restarted bupropion and reports doing better with smoking cessation using nicotine gum. She continues to experience episodes of feeling yucky and crying. ADHD symptoms persist but she views the associated energy and activity level positively. Plan: - Continue bupropion - Continue nicotine gum for smoking cessation the note is transcribed using speech recognition software. It is a reflection of a visit with the patient. It might have some inaccuracy, including medication names and transcribing errors, though efforts have been made to correct them. Plan Of Treatment Pending Test Test Name Order Date UDT 09/17/2023 Next Appt Details Provider Name:Abner david, 03/31/2025 01:15:00 PM, [address], [facility] [address], [place], [address], Insurance Providers Payer Name Payer Address Payer Phone Subscriber Number Group Number Insured Name Patient Relationship to Insured Coverage Start Date Coverage End Date [employer] Replacemen t/Advantag e - Ppo [address] [place] [address] [id number] JUANA REYES Self - patient is the insured Medical (General) History Medical History History ICD Code Problems: Attention deficit hyperactivit y disorder Attention deficit hyperactivity disorder , predominantly inattentive type Chronic post-traumatic stress disorder Generalized anxiety disorder Long-term current use of drug therapy Long-term drug therapy Mixed bipolar I disorder in partial shanika ssion Nicotine dependence with current use , Surgical History Surgery Date(Month/Year) Appendectomy (30576) Hysterectomy (38682) Endometrial ablation (22249) 03/03/1994 Hysterectomy (35162) 03/03/1994 Other 03/03/1998 Any surgical history 03/03/2001 Breast surgery (87006) 03/03/2004 Reconstructive surgery 03/03/2005
--- NOTE | 2025-01-21 09:52 | P.PNAN_ITS ---
Anes - Initial Pre Proc Eval Procedure: Operation Date: 01/21/25 10:30 Proposed Procedures p Reverse Right Total Shoulder Arthroplasty - Keon Hamilton MD Date/Time: 01/21/25 09:52 Surgeon: Keon Hamilton MD Pre Op Diagnosis: fx right humeral head Patient Data Age: 64 Gender: F Height: 1.7 m Weight: 65.8 kg Allergies Allergy/AdvReac Type Severity Reaction Status Date / Time Penicillins Allergy Unknown Scratchy Verified 01/18/25 09:32 palms/THROAT SWELLING Home Medications ?Medication ?Instructions ?Recorded ?Confirmed ?Type clonazepam 0.5 mg tablet 0.5 mg PO TID 11/25/1901/17 History calcium carbonate (Calcium 600) 600 mg PO HS 10/31/22 01/17/25 History cholecalciferol (vitamin D3) 25 25 mcg PO HS 10/31/22 01/17/25 History mcg (1,000 unit) capsule multivitamin (Multiple Vitamins 1 tablet PO HS 2 3 01/17/25 History tablet) clonidine HCl 0.2 mg tablet 0.2 mg PO DAILY #30 tabs 0 08/24/24 01/17/25 Rx clonidine HCl 0.3 mg tablet 0.3 mg PO DAILY #30 tabs 0 09/16/24 01/17/25 Rx amitriptyline 10 mg tablet See Rx Instructions .Route 11/19/24 01/17/25 Rx .COMPLEX #180 tabs mupirocin 2 % topical ointment 1 applic topical TID #1 5 grams 01/18/25 Rx (Centany) oxycodone-acetaminophen 5 mg-325 1 - 2 tablet PO Q4-6H PRN pain 7 01/18/25 01/18/25 Rx mg tablet (Percocet) days #40 tabs sulfamethoxazole 800 1 tablet PO Q12H #1 tablet 1 03/20/24 Rx mg-trimethoprim 160 mg tablet (Bactrim DS) Patient hx anesthesia problems: none Family hx anesthesia problems: none Results Review: All pre-operative results and documents have been reviewed as part of the pre- operative evaluation. [facility] Past Medical History Medical History (Updated 01/21/25 @ 10:23 by Wan Davila DO) Fracture of proximal end of right humerus Elevated liver enzymes Gastroenteritis RLQ abdominal tenderness Hx of adenomatous colonic polyps Abdominal pain GERD (gastroesophageal reflux disease) Belching Irritable bowel syndrome with mixed bowel habits DDD (degenerative disc disease) PTSD (post-traumatic stress disorder) Anxiety and depression Ruptured appendix History of ectopic Surgical History Surgical History (Reviewed 01/18/25 @ 09:51 by Robyn Powell [facility]) Hx of bilateral breast reduction surgery History of hysterectomy History of abdominoplasty History of section x 2 Family History Family History (Reviewed 01/18/25 @ 09:51 by Robyn Powell [facility]) Mother Family history of malignant neoplasm of breast in first degree relative Father Mesothelioma Sibling No problems noted. Legal Guardian No problems noted. Grandparent DVT (deep venous thrombosis) Social History Social History (Reviewed 01/18/25 @ 09:51 by Robyn Powell [facility]) Smoking packs per day: 0.5 Smoking cigarettes per day: 10.0 Years smoked: 20 Smoking pack-years: 10.00 Smoking status: Former smoker Tobacco type: cigarettes Smoking end date: 03/03/19 Alcohol intake: current Drinks per week: 1 Substance use: current Substance use type: marijuana Other substance usage details: Occasional Last use: 01/14/25 Do You Feel Safe in your Home?: Yes Lack of Transportation: No Lack of Food: Never True Current Housing: I Have Housing Concerned About Future Housing: No Difficulty Paying Gas/Electric Bills: YES Difficulty Paying for Meds: YES Currently Unemployed: No Education: Associate Degree Difficulty w/ Childcare or Family Care: No Living arrangements: alone Gender identity (if verbalized by the patient): Female Spiritual care concerns: No Anes - Eval Final PreProcedure Day of Procedure 01/21/25 09:52 Patient weight: normal Heart: regular rate and rhythm Lungs: clear to auscultation Airway: Mallampati scale class II Neurological: alert and oriented Last oral intake: >/= 8 hours ASA classification: II Emergent: no Anesthetic plan: proceed Anesthesia type and monitoring: general ETT and standard monitoring Results Review: All pre-operative results and documents have been reviewed as part of the pre- operative evaluation. Informed Consent: The patient's anesthetic plan and its attendant risks and benefits were discussed with the patient/family/POA. Questions were solicited and answers provided to the satisfaction of the patient/family/POA.
[2025-01-21] MEDS: ACETAMINOPHEN 500 MG TABLET 1000 MG PO (10:10)
--- NOTE | 2025-01-21 10:12 | WPDHPUPDATE1 ---
History and Physical Update Update Date/Time: 01/21/25 10:12 History and Physical has been reviewed, including an updated exam of the patient. There are NO changes in the patient's condition. Risks, benefits, and alternatives have been discussed and questions answered. Patient agrees to proceed with procedure.
[2025-01-21] MEDS: LACTATED RINGERS 1,000 ML 30 ML IV CONT (10:30)
[2025-01-21] MEDS: TRANEXAMIC ACID 1,000MG/ISO100 1,000 MG/100 ML BAG 200 MG IVPB (10:45)
--- NOTE | 2025-01-21 10:54 | WPDANESPNB ---
Anes - Peripheral Nerve Block Date/Time: 01/21/25 10:54 I have discussed with the patient/family/POA the placement of a peripheral nerve block for post-operative pain management, including associated risks, benefits, complications, and side effects. Alternative methods of post-operative analgesia were detailed. Questions were solicited and answers provided to the satisfaction of the patient/family/POA. Time-Out: A pre-procedural Time-Out was completed immediately before starting the procedure and confirmed: Patient Identification, Site, Procedure, Patient Position and the Availability of Requisite Equipment. Clinical Indications: Acute post-operative pain management requested by the operative surgeon. Nerve Block Insertion Note Anes-nerve block: interscalene right Patient position: supine Skin prep: chlorhexidine Needle: 22 gauge, stimulating, insulated echogenic needle. Needle length: 50 mm Technique: ultrasound Injectate: bupivacaine 0.5% with epi 5 mcg/ml (20cc- no epi) Observations: tolerated well Complications: none Procedure start time:: 1046 Procedure end time:: 1050
[2025-01-21] MEDS: ceFAZolin 2 GM in SODIUM CHLORIDE 0.9% IV 50 ML 100 ML IVPB ×2 (10:55→17:37)
[2025-01-21] MEDS: SODIUM CHLORIDE 0.9% IV 37.7 ML, MORPHINE SULFATE INJ (*CRX) 2 MG, ROPivacaine HCL 1% 2... INFILTRATE (11:44)
[2025-01-21] MEDS: VANCOMYCIN HCL 1,000 MG VIAL 1000 MG TOPICAL (12:25)
[2025-01-21] MEDS: TRANEXAMIC ACID 1,000 MG/10 ML AMPUL 1000 MG IV PUSH (13:31)
[2025-01-21] MEDS: fentaNYL CITRATE INJ (*CRX) 100 MCG/2 ML VIAL 25 MCG IV PUSH ×7 (14:07→14:55)
[2025-01-21] MEDS: diazePAM INJ (*CRX) 10 MG/2 ML SYRINGE 2.5 MG IV PUSH ×2 (14:48→15:02)
--- NOTE | 2025-01-21 14:49 | SUR.PHASEI ---
PATIENT VERY TALKATIVE, SAYS SHE FEELS ANXIOUS; DR. SHERMAN NOTIFIED; ORDERED VALIUM
--- NOTE | 2025-01-21 16:18 | W.PM.PROC2 ---
Procedure Note - Detailed Date of Procedure 01/21/25 Pre-op Diagnosis Displaced 4 part comminuted fracture of the right proximal humerus Post-op Diagnosis Same Procedure Performed Reverse total shoulder arthroplasty, right Surgeon Keon Hamilton MD Quality Improvement Manager Linda Hughes PA-C Anesthesia General and Regional (Interscalene block.) Findings Highly comminuted complex fracture involving the articular surface. Four part fracture. Description of Procedure The patient was given an interscalene block in the preoperative area. Preoperative antibiotics were given. The patient was transferred to the operating room and a general anesthetic was administered. The beach chair position was used at 45 degrees. All bony prominences were padded. The head was carefully stabilized on the [facility] head start coordinator. A sterile prep and drape was performed in the usual manner with ChloraPrep. A longitudinal incision was created at the anterior shoulder just lateral to the deltopectoral interval. Careful dissection was performed to expose the interval and protect the cephalic vein. The vein was retracted medially. The biceps was used as a landmark to identify the rotator cuff interval which was split. It was then tenotomize. Stay sutures were placed in the greater tuberosity fragment at the rotator cuff insertion. Multiple small fragments of articular surface and bone were removed from the joint. The glenoid was exposed. Care was taken to stay on bone to protect the axillary nerve. The cartilage was removed with a Silverman elevator. The 25 mm standard base plate covered most of the glenoid. It was placed slightly low on the face. Inferior tilt of approximately 10? was applied. The guide pin was placed. Reaming was performed to about 80% coverage in order to preserve as much bone as possible. The bone quality was noted to be quite poor. The central compression screw was placed with good purchase. Next the insertion of supplemental compression screws followed by locking screws superior and inferiorly was performed. The standard glenosphere was placed with the locking screw. Attention was turned to the humerus. For Nice loop sutures were placed at the posterior cuff and greater tuberosity fragment. Two drill holes were placed adjacent to the bicipital groove, and 2 more Nice loop sutures were placed. The proximal humerus was broached sequentially until a good Press-Fit was obtained. Trialing confirmed a very nice stability and soft tissue tension. The real humeral stem was impacted with bone autograft placed in the metaphyseal window, and around the stem proximally. The real stem sat several mm deeper. Thus, the +3 polyethylene insert was used. Stability and motion were excellent. There was no impingement. The tuberosity repair commenced with 2 of the sutures placed around the stem tied together securing the greater tuberosity. Two of the other sutures were brought through the lesser tuberosity fragment at the rotator cuff insertion and tied in a cerclage also including the greater trochanter. The shaft sutures were brought into the supraspinatus and upper border of the subscapularis and rotator interval. The sutures very nicely controlled the vertical vector. The shoulder was copiously irrigated periodically with pulsatile lavage. The shoulder was reduced and stability confirmed. 1 gram of Vancomycin powder was placed in the joint. The remaining tissue was closed with 2-0 Vicryl, 3-0 Stratafix and 4-0 Stratafix, and steri-strips. A sterile silver occlusive dressing and shoulder immobilizer were placed. The patient was transferred to the recovery room. Implants [place] reverse for fracture stem Press-Fit. 36 mm glenosphere with 25 mm standard base plate. +3 mm polyethylene insert. Estimated Blood Loss 200 Drains No Pathology None sent Complications No immediate complications Condition Stable Disposition PACU [facility] Billing Surgery - Charge Forward: Surgery Billing
[2025-01-21] MEDS: SENNA/DOCUSATE SODIUM TABLET 2 TAB PO (17:37)
[2025-01-21] MEDS: CELECOXIB 200 MG CAPSULE PO (17:37)
[2025-01-21] MEDS: ACETAMINOPHEN 325 MG TABLET 650 MG PO (17:37)
[2025-01-21] MEDS: FAMOTIDINE 20 MG TABLET PO (21:54)
[2025-01-21] MEDS: AMITRIPTYLINE HCL 10 MG TABLET 20 MG PO (21:54)
[2025-01-21] MEDS: ASPIRIN 81 MG ENTERIC TABLET PO (21:54)
[2025-01-21] MEDS: clonazePAM (*CRX) 0.5 MG TABLET PO (21:58)
[2025-01-21] MEDS: HYDROmorphone HCL INJ (*CRX) 1 MG/ML SYR IV PUSH (22:20)
[2025-01-22] MEDS: ACETAMINOPHEN 325 MG TABLET 650 MG PO ×3 (00:09→11:21)
[2025-01-22 00:40] VITALS: BP 134/89; PULSE 105; RESP 20; TEMP 36.8; O2SAT 99
[2025-01-22] MEDS: ceFAZolin 2 GM in SODIUM CHLORIDE 0.9% IV 50 ML 100 ML IVPB ×2 (02:15→11:17)
[2025-01-22] MEDS: oxyCODONE/ACETAMINOPHEN (*CRX) 10-325 MG TABLET 1 TAB PO (02:29)
[2025-01-22 04:24] VITALS: BP 131/65; PULSE 93; RESP 20; TEMP 36.2; O2SAT 98
[2025-01-22 05:47] LABS: Hematocrit 32.4 % (37.0-47.0); Hemoglobin 10.6 g/dL (12.0-15.0); Immature Granulocyte Percent A 0.4 % (0-0.5); Lymphocytes Absolute Auto 1.32 K/mm3 (0.9-3.2); Mean Corpuscular HGB Conc 32.7 g/dl (32-36); Mean Corpuscular Hemoglobin 29.3 pg (26-34); Mean Corpuscular Volume 89.5 fl (80-100); Nucleated Red Blood Cells Absolute Auto 0.000 K/mm3 (0.0-0.012); Nucleated Red Blood Cells Perc 0.0 % (0.0-0.2); Platelet Count Result 315 k/mm3 (150-375); Red Blood Count 3.62 M/mm3 (4.2-5.4); White Blood Count 10.8 K/mm3 (4.5-10.0)
[2025-01-22 06:07] LABS: Anion Gap 5 mmol/L (4-12); Blood Urea Nitrogen 18 mg/dL (7-17); Calcium 8.8 mg/dL (8.4-10.2); Carbon Dioxide 32 mmol/L (22-30); Chloride 96 mmol/L (98-107); Estimated CRCL calculation 47 ml/min; Estimated Glomerular Filt Rate 55; Glucose 109 mg/dL (65-110); Potassium 4.0 mmol/L (3.4-5.0); Sodium 133 mmol/L (137-145)
[2025-01-22 07:30] VITALS: PULSE 102; RESP 20; O2SAT 98
[2025-01-22 07:57] VITALS: O2SAT 98
[2025-01-22] MEDS: CELECOXIB 200 MG CAPSULE PO (08:49)
[2025-01-22] MEDS: ASPIRIN 81 MG ENTERIC TABLET PO (08:49)
[2025-01-22] MEDS: SENNA/DOCUSATE SODIUM TABLET 2 TAB PO (08:49)
[2025-01-22] MEDS: FAMOTIDINE 20 MG TABLET PO (08:50)
[2025-01-22] MEDS: oxyCODONE/ACETAMINOPHEN (*CRX) 5-325 MG TABLET 1 TABLET PO ×2 (08:55→13:12)
[2025-01-22 10:02] VITALS: BP 114/84; PULSE 99; RESP 20; TEMP 36.2; O2SAT 91
--- NOTE | 2025-01-22 11:29 | P.PNOP_ITS ---
Progress Note: A&P Assessment and Plan (1) Status post reverse total arthroplasty of right shoulder: Code(s): Z96.611 - Presence of right artificial shoulder joint Status: Acute Assessment and Plan: Postop day 1: Right reverse total shoulder arthroplasty for fracture. Patient tolerated procedure well. No complications. Pain manageable with pain medication. No numbness or tingling. We had a lengthy discussion regarding postoperative wound care, limitations, expectations, and exercises. Patient shows good understanding. She has had initial physical therapy and is tolerating it well. DVT prophylaxis: 81 mg baby aspirin b.i.d. for 14 days. Pain medication: Percocet. Patient has followup appointment with Dr. Hamilton in 3 weeks. Subjective Subjective Date/Time Seen: 01/22/25 11:29 Interval history: Patient resting comfortably. No complaints. No numbness or tingling. Review of Systems Review of Systems: All systems reviewed & are unremarkable except as noted in HPI and below Exam Narrative: Normal weight Female. Resting comfortably in chair. Wearing sling. Dressing dry and intact with no drainage. Moderate swelling. Moderate old ecchymosis. No new ecchymosis. No erythema. No hematoma. Range of motion limited due to pain. Calf nontender. Neurologic status intact. No varicosities. Distal pulses palpable. Deltoid fires. Objective Data Vital Signs Vital Signs: Vital Signs - 24 hr 01/21/25 13:48 01/21/25 14:00 01/21/25 14:15 Temperature 97.3 F L Pulse Rate 99 106 H 106 H Respiratory Rate 25 H 18 16 Blood Pressure 150/79 H 161/73 H 137/76 Pulse Oximetry 100 100 95 Oxygen Delivery Simple Face Mask Simple Face Mask Room Air Oxygen Flow Rate 8 8 Fraction of Inspired Oxygen 01/21/25 14:30 01/21/25 14:45 01/21/25 15:00 Temperature Pulse Rate 106 H 111 H 104 H Respiratory Rate 17 17 17 Blood Pressure 137/69 128/65 114/59 L Pulse Oximetry 96 95 94 Oxygen Delivery Nasal Cannula Nasal Cannula Nasal Cannula Oxygen Flow Rate 1 2 2 Fraction of Inspired Oxygen 01/21/25 15:15 01/21/25 15:30 01/21/25 16:00 Temperature 98.9 F 99 F 99 F Pulse Rate 104 H 109 H 105 H Respiratory Rate 18 18 18 Blood Pressure 120/64 111/70 117/69 Pulse Oximetry 95 93 95 Oxygen Delivery Oxygen Flow Rate Fraction of Inspired Oxygen 01/21/25 17:00 01/21/25 21:00 01/21/25 21:59 Temperature 98.9 F 98.6 F Pulse Rate 103 H 106 H Respiratory Rate 18 20 Blood Pressure 121/72 117/62 Pulse Oximetry 95 96 99 Oxygen Delivery Nasal Cannula Oxygen Flow Rate 3 Fraction of Inspired Oxygen 01/22/25 00:40 01/22/25 04:24 01/22/25 07:30 Temperature 98.3 F 97.1 F L Pulse Rate 105 H 93 102 H Respiratory Rate 20 20 20 Blood Pressure 134/89 131/65 Pulse Oximetry 99 98 98 Oxygen Delivery Nasal Cannula Oxygen Flow Rate 2 Fraction of Inspired Oxygen 01/22/25 07:57 01/22/25 08:00 01/22/25 08:57 Temperature Pulse Rate Respiratory Rate Blood Pressure Pulse Oximetry 98 Oxygen Delivery Room Air Room Air Room Air Oxygen Flow Rate Fraction of Inspired Oxygen 01/22/25 09:31 01/22/25 10:02 Temperature 97.2 F L Pulse Rate 99 Respiratory Rate 20 Blood Pressure 114/84 Pulse Oximetry 91 Oxygen Delivery Room Air Oxygen Flow Rate Fraction of Inspired Oxygen Intake/Output Intake/Output: Intake & Output 01/19/25 01/20/25 01/21/25 01/22/25 23:59 23:59 23:59 23:59 Intake Total 940 320 Balance 940 320 Meds/Results Medications: Active Medications Generic Name Dose Route Start Last Admin Trade Name Jourdanq PRN Reason Stop Dose Admin Acetaminophen 650 mg 01/21/25 18:00 01/22/25 11:21 Acetaminophen 325 Mg Tablet PO 650 mg Q6HR AMAIRANI Administration Amitriptyline HCl 20 mg 01/21/25 21:00 01/21/25 21:54 Amitriptyline Hcl 10 Mg Tablet PO 20 mg HS AMAIRANI Administration Aspirin 81 mg 01/21/25 21:00 01/22/25 08:49 Aspirin 81 Mg Enteric Tablet PO 81 mg Q12HR AMAIRANI Administration Celecoxib 200 mg 01/21/25 17:00 01/22/25 08:49 Celecoxib 200 Mg Capsule PO 200 mg BIDWM AMAIRANI Administration Clonazepam 0.5 mg 01/21/25 15:15 01/21/25 21:58 Clonazepam (*Crx) 0.5 Mg Tablet PO 0.5 mg TID PRN Administration Anxiety Clonidine HCl 0.2 mg 01/22/25 09:00 01/22/25 08:49 Clonidine Hcl 0.2 Mg Tablet PO 0.2 mg DAILY AMAIRANI Administration Clonidine HCl 0.3 mg 01/22/25 18:00 Clonidine Hcl 0.1 Mg Tablet PO QPM AMAIRANI Diphenhydramine HCl 25 mg 01/21/25 15:15 Diphenhydramine Hcl Inj 50 Mg/Ml Vial IV PUSH Q6H PRN Itching Famotidine 20 mg 01/21/25 21:00 01/22/25 08:50 Famotidine 20 Mg Tablet PO 20 mg Q12HR AMAIRANI Administration Hydromorphone HCl 1 mg 01/21/25 15:15 01/21/25 22:20 Hydromorphone Hcl Inj (*Crx) 1 Mg/Ml Syr IV PUSH 1 mg Q2H PRN Administration Breakthrough Pain Rated 7-10 or NPO Hydromorphone HCl 0.5 mg 01/21/25 15:15 Hydromorphone Hcl Inj (*Crx) 1 Mg/Ml Syr IV PUSH Q2H PRN Breakthrough Pain Rated 4-6 or NPO Ibuprofen 800 mg in 200 mls @ 400 mls/hr 01/21/25 15:15 Caldolor 800 Mg/200 Ml IVPB Q6H PRN Breakthrough Pain Rated 1-3 or NPO Naloxone HCl 0.1 mg 01/21/25 15:15 Naloxone Hcl 0.4 Mg/Ml Vial IV PUSH Q2M PRN Opiate Reversal Ondansetron HCl 4 mg 01/21/25 15:15 Ondansetron Inj 4 Mg/2 Ml Vial IV PUSH Q4H PRN Nausea And Vomiting Oxycodone/Acetaminophen 1 tablet 01/21/25 15:15 01/22/25 08:55 Oxycodone/Acetaminophen (*Crx) 5-325 Mg Tablet PO 1 tablet Q4H PRN Administration Pain Rated 4-6 Oxycodone/Acetaminophen 1 tab 01/21/25 15:15 01/22/25 02:29 Oxycodone/Acetaminophen (*Crx) 10-325 Mg Tablet PO 1 tab Q6H PRN Administration Pain Rated 7-10 Polyethylene Glycol 17 gm 01/22/25 09:00 01/22/25 08:50 Polyethylene Glycol 3350 17 Gm Powd.Pack PO Not Given QAM AMAIRANI Senna/Docusate Sodium 2 tab 01/21/25 17:00 01/22/25 08:49 Senna/Docusate Sodium Tablet PO 2 tab BID AMAIRANI Administration Tramadol HCl 50 mg 01/21/25 15:15 Tramadol Hcl (*Crx) 50 Mg Tablet PO Q4H PRN Pain Rated 1-3 Labs Labs: Laboratory Results - last 24 hr 01/22/25 05:27 WBC 10.8 H RBC 3.62 L Hgb 10.6 L D Hct 32.4 L MCV 89.5 MCH 29.3 MCHC 32.7 RDW 13.6 Plt Count 315 MPV 9.9 Immature Gran % (Auto) 0.4 Neut % (Auto) 79.6 H Lymph % (Auto) 12.2 L [place] % (Auto) 7.5 Eos % (Auto) 0.1 Baso % (Auto) 0.2 Lymph # (Auto) 1.32 [place] # (Auto) 0.8 H Eos # (Auto) 0.0 Baso # (Auto) 0.0 Abs Immat Gran (auto) 0.04 H Absolute Neuts (auto) 8.6 H Absolute Nucleated RBC 0.000 Nucleated RBC % 0.0 Sodium 133 L Potassium 4.0 Chloride 96 L Carbon Dioxide 32 H Anion Gap 5 BUN 18 H Creatinine 1.01 H Estim Creat Clear Calc 47 Estimated GFR 55 L Glucose 109 Calcium 8.8
== END 2025-01-22 14:15 | disposition home or self-care (01) ==
LOC: ANHSURGERY 13:59 → ANH3MEDSUR 15:24
PROVIDERS: Physician Assistant Surgical; PCP Internal Medicine; Visit Provider Orthopaedic Surgery
PROC: (CPT 23472; principal; 2025-01-21 10:30)
DX: S42.291A Other displaced fracture of upper end of right humerus, initial encounter for closed fracture (principal); G89.18 Other acute postprocedural pain; F12.90 Cannabis use, unspecified, uncomplicated; Z87.891 Personal history of nicotine dependence; W19.XXXA Unspecified fall, initial encounter
CPT/HCPCS: 23472; 64415; 36415; 73030; 80048; 85025; 97110; 97161; 97165; 97535; J0690; A4565; A9270; J0166; J1100; J1171; J1885; J2250; J2270; J2405; J2704; J2795; J3010; J3290; J3360; J3373; J7120